=== PATIENT | male | born 1970 | race Two or more races ===

== ENCOUNTER 2025-01-16 12:23 | Inpatient (IN) | payer BC, SELFPAY ==
[2025-01-14] VITALS (7 sets, daily range): BP systolic 136–161; BP diastolic 95–108; BMI 33.9
[2025-01-14 15:29] LABS: % Basophils 0.7 % (0-2); % Eosinophils 2.8 % (0-6); % Immature Granulocytes 0.4 % (0-0.5); % Lymphocytes 22.9 % (20.5-51.1); % Monocytes 5.9 % (1.7-9.3); % Neutrophils 67.3 % (42.2-75.2); Absolute Basophils 0.1 10^3/uL (0-0.2); Absolute Eosinophils 0.3 10^3/uL (0-0.7); Absolute Monocytes 0.5 10^3/uL (0.1-0.6); Hemoglobin 16.1 g/dL (13.0-18.0); Mean Corp Hgb Conc. 35.8 g/dL (33.0-37.0); Mean Corpuscular Hgb 30.1 pg (27.0-31.0); Mean Corpuscular Volume 84.1 fL (80.0-94.0); Mean Platelet Volume 10.6 fL (7.4-10.4); Nucleated Red Blood Cells % 0 % (-); Platelet Count 210 10^3/uL (130-400); Red Blood Cell Count 5.35 10^6/uL (4.70-6.10); Red Cell Dist. Width 12.5 % (11.5-14.5); White Blood Cell Count 8.9 10^3/uL (4.8-10.8)
--- NOTE | 2025-01-14 15:29 | ED.GENMED ---
History of Present Illness
General
Chief Complaint: Breathing Problem
Source: patient
Exam Limitations: none
Time Seen by Provider: 01/14/25 15:10
Nursing documentation reviewed up to this point in time: agreed with
History of Present Illness
History of Present Illness:
Patient to ED [facility] complaint of CHACON x 2-3 days. Denies any chest pain, reports tightness. Denies fever/chills, recent illness. States he had a cardiac stent placed in the past. After procedure he was hospitalized for pericarditis. States his
symptoms are similar to this. No n/v/diaphoresis. No leg swelling or pain.
Past History
Past History
ED Past Medical History: CAD and Hypercholesterolemia
ED Past Surgical History: Cardiac (stent)
Social History
Tobacco: Non-smoker
Alcohol: Occasional
Review of Systems
Review of Systems
Allergies reviewed?: Yes
All Other Systems: ROS reviewed and negative except as documented in HPI and ROS
Constitutional: Reports no symptoms
EENT: Reports no symptoms
Respiratory: Reports trouble breathing
Cardiac: Reports other (Chest tightness)
ABD/GI: Reports no symptoms
: Reports no symptoms
Musculoskeletal: Reports no symptoms
Skin: Reports no symptoms
Neurological: Reports no symptoms
Psychiatric: Reports no symptoms
Phy Exam
General Physical Exam
General Presentation: mild distress
General age: appears stated age
General Skin: warm and dry
General Habitus: normal
General Mental: alert
Cardiovascular Exam
Cardiovascular Exam: regular rate/rhythm and no edema
Pulmonary Exam
Pulmonary Exam: lungs clear and no respiratory distress
Musculoskeletal Exam
Musculoskeletal Exam: full ROM and neuro vasc intact
Skin Exam
Skin Exam: normal color, warm/dry and no rash
Psychiatric Exam
Psychiatric Exam: normal mood/affect
Scores
Heart Failure Risk
Heart Failure Risk Score: Not Applicable
Course
Orders/Labs/Results
Orders:
Orders
01/14/25 14:28
EKG [Electrocardiogram (*1)] Urgent
Reason for Study: Shortness of Breath
EKG- Treatment ONCE
01/14/25 Dinner
Cholesterol Lowering
At Your Request: Full Participation
Cholesterol Lowering: Sodium, 2 Gram
01/14/25 15:14
IV Insert/Care/Rem.- Treatment PRN
01/14/25 15:18
Complete Blood Count/With Diff Urgent
Comprehensive Metabolic Panel Urgent
D-Dimer Urgent
Comment: ADDON
Glycohemoglobin (HgbA1c) Urgent
Prothrombin Time Urgent
Troponin I Urgent
01/14/25 15:27
CR Chest - 2 Views Urgent
Comment:
Reason For Exam: SOB
01/14/25 18:00
Troponin I Urgent
01/14/25 18:36
Admit/Transfer Patient As Directed
Co-Sign Provider:
Level of Care: Observation services
Assign to:: Telemetry
Physician / Group: Emigdio Cruz
Diagnosis: chest pain concerning for ACS
Reason for Telemetry: Chest Pain syndromes
Date to Stop Telemetry: 01/16/25
Time to Stop Telemetry: 11:00
01/14/25 18:37
Code Status As Directed
Resuscitation Status: Full Code
PRN Pain Medication Management As Directed
May give lesser potent ordered pain med per pt: Yes
preference::
Protocol:: Medication orders for pain may be administered in a
manner that supports deferring to patient preference
when the pt is:
- Requesting an ordered lesser potent pain medication.
Least to most potent pain medications are defined
as: acetaminophen < NSAID < tramadol < opioids
(morphine, oxycodone, hydromorphone).
- Requesting a lesser dose of the same medication IF
ORDERED.
- Requesting a less intrusive route of administration
if both routes are prescribed by the provider (PO <
IV).
01/14/25 20:29
Electrocardiogram (*1) Q6H
Reason for Study: Chest Pain
Comment: at admission and Q3H for total of 3, to be done with each troponin
01/14/25 20:29
CARDIOLOGY CONSULT Routine
Consulting Provider: Ryland Clark
Was physician already notified: Yes
Activity As Directed
Activity Level: Ambulate
INT (Intravenous Needle Therapy) As Directed
Comment: maintain peripheral IV access
Intake/ Output As Directed
Frequency: Per unit guidelines
Records Request [Obtain Records] As Directed
Dates of Information to be Released: all
Type of Information Requested: Entire Record
If Other, list type of info requested: Cardiac history
Obtain Records from: follow with protection engineer from [facility]
Vital Signs As Directed
Frequency: q4h
Weight As Directed
Frequency: Once
Comment: on admission
DX Deep Vein Thrombosis Video Routine
01/15/25 02:29
Electrocardiogram (*1) Q6H
Reason for Study: Chest Pain
Comment: at admission and Q3H for total of 3, to be done with each troponin
01/15/25 04:09
Basic Metabolic Panel IN AM
Cardiovascular Evaluation IN AM
01/15/25 08:00
Clopidogrel Bisulfate [Plavix] 75 mg PO DAILY
01/15/25 08:29
Electrocardiogram (*1) Q6H
Reason for Study: Chest Pain
Comment: at admission and Q3H for total of 3, to be done with each troponin
01/15/25 18:00
Enoxaparin Sodium [Lovenox] 40 mg SC QPM
01/16/25 11:00
DC Protocol for Telemetry ONCE
Abnormal Lab Results
01/14/25
15:18
MPV 10.6 H fL
(7.4-10.4)
BUN 21 H mg/dl
(9-20)
Glucose 126 H mg/dl
(70-99)
01/14/25 15:18
01/14/25 15:18
Vital Signs
Initial and Last Documented VS:
Initial Vital Signs
Temp Pulse Resp BP Pulse Ox
97.8 F 99 16 161/100 98
01/14/25 14:22 01/14/25 14:22 01/14/25 14:22 01/14/25 14:22 01/14/25 14:22
Last Documented Vital Signs
Temp Pulse Resp BP Pulse Ox
98.4 F 91 16 121/95 98
01/15/25 11:01 01/15/25 11:01 01/15/25 11:01 01/15/25 11:01 01/15/25 11:01
*Pulse Oximetry
SaO2: 98
Oxygen Mode of Delivery: Room air
*Critical Care Note
Total Time (30-74mins, 75-104mins- exclusive of procedures): Not Applicable
Update Note
Update Note:
Patient to ED with complaint of chest tightness, CHACON x 2-3 days. He reports having similar symptoms approx 5 years ago when he was diagnosed with pericarditis after stent placement. Follow with cardiolgist from [facility]. He did not call his
protection engineer with these new symptoms. Unclear why. Labs reviewed. EKG NSR, troponin neg, 2nd trop pending. DDimer neg. CBC, CMP WNL. PUlse ox 98%RA with activity and at rest. HR 70's at rest, jumpps to 110-115 with minimal activity. On
plavix and baby asa daily, reports complaince with his meds. Case discussed with Dr. Clark, will consult. Will admit to hospitalist for angina, plan for cath Thursday. Discussed plan with patient and family.
ED Attending Note
-
Portions of this chart may have been created with voice recognition software.� Occasional wrong word or��sound alike� substitutions may have occurred due to the inherent limitations of voice recognition software.
Discharge Plan
Departure
Patient Disposition: Admit
Date of Disposition: 01/14/25
Time of Disposition: 17:50
Presentation/result/management discussed w/ accepting MD/DO: Hospitalist
Patient with high blood pressure during this ER visit?: Yes
Condition: Fair
Covid-19: Not Applicable
Discharge Problem:
Accelerating angina
Interventions
Interventions:
*Risk Screen - Suicide Last Done: 01/14/25 14:22
*General Assessment Last Done: 01/14/25 15:08
*Neglect/Abuse Screening Last Done: 01/14/25 14:22
*ED- Fall Risk Assessment Last Done: 01/14/25 15:08
*ED COVID-19 Vaccine History Last Done: 01/14/25 15:08
*Nursing Disposition Last Done: 01/14/25 20:33
ED- Cardiac Assessment Last Done: 01/14/25 15:08
ED- Pulmonary Assessment Last Done: 01/14/25 15:08
Discharge Date and Time
Discharge Date/Time: 01/14/25 20:33
[2025-01-14 15:40] LABS: INR 0.93; PT 12.8 Sec (11.4-14.6)
[2025-01-14 15:44] LABS: ALT (SGPT) 39 U/L (0-50); AST (SGOT) 36 U/L (17-59); Albumin 4.7 g/dl (3.5-5.0); Alkaline Phosphatase 72 U/L (38-126); Blood Urea Nitrogen 21 mg/dl (9-20); Calcium 9.9 mg/dl (8.4-10.2); Carbon Dioxide 27 mmol/L (22-30); Chloride 102 mmol/L (98-107); Glucose 126 mg/dl (70-99); Sodium 137 mmol/L (135-145); Total Bilirubin 0.6 mg/dl (0.2-1.3); Total Protein 7.4 g/dl (6.3-8.2); eGFR > 60.00
[2025-01-14 15:51] LABS: Troponin I < 0.012 ng/ml
[2025-01-14 16:12] LABS: D-Dimer 0.28 ug/mlFEU (0.00-0.50)
--- NOTE | 2025-01-14 17:55 | HPS.HSE ---
Family Physician
-
Family Physician: Miguel Ansari
Chief Complaint
-
exertional dyspnea
History of Present Illness
Patient is a 54-year-old male with past medical history significant for ASCVD, hyperlipidemia and hypertension who presented to [facility] ED for evaluation of exertional dyspnea for 2-3 days. Patient reports that these symptoms are similar to those he
had approximately 5 years ago when he ended up with cardiac cath with stent placement and then pericarditis. Patient explains that he has chest discomfort on left side, non-radiating, mostly with exertion but has experienced symptoms at rest. Denies
any recent illness, fever, chills, cough, palpitations, nausea or vomiting.
Medical History
Past Medical History
Past Medical History: Reports Other
Additional Past Medical History:
ASCVD
hyperlipidemia
hypertension
Past Surgical History: Reports Other
Additional Past Surgical History:
cardiac cath with stent placement
Social History
Tobacco: Non-smoker
Alcohol: Occasional
Drug: None
Personal:
Living: With Family
Employment: Employed
Family History
Family History: Not pertinent
Allergies / Home Medications
Allergies reflects when Allergies were last updated in [employer].
Home Medications with original date entered in [employer]
Allergy/Medication List:
Allergies
Allergy/AdvReac Type Severity Reaction Status Date / Time
No Known Allergies Allergy Unverified 01/14/25 14:21
Home Medications
Metoprolol Tablets 100 mg PO QPM 01/14/25
Perindopril 6.78 mg PO DAILY 01/14/25
amlodipine 10 mg tablet (Norvasc) 10 mg PO DAILY 01/14/25
aspirin 81 mg tablet,delayed release 81 mg PO DAILY 01/14/25
berberine chloride 500 mg capsule 500 mg PO DAILY 01/14/25
clopidogrel 75 mg tablet (Plavix) 75 mg PO DAILY 01/14/25
coQ10 (ubiquinol) 100 mg capsule 100 mg PO DAILY 01/14/25
indapamide 2.5 mg tablet 2.5 mg PO DAILY 01/14/25
magnesium oxide 400 mg PO DAILY 01/14/25
rosuvastatin 40 mg tablet (Crestor) 40 mg PO DAILY 01/14/25
turmeric 400 mg capsule 400 mg PO DAILY 01/14/25
vitamin D3 125 mcg (5,000 unit)-vitamin K2 90 mcg capsule 1 cap PO DAILY 01/14/25
zinc sulfate 50 mg zinc (220 mg) tablet 50 mg PO DAILY 01/14/25
Review of Systems
-
History Source: Patient
Constitutional: Reports No Symptoms
EENT: Reports No Symptoms
Respiratory: Reports Other (exertional dyspnea )
Cardiac: Reports Chest Pain
Abdomen/GI: Reports No Symptoms
: Reports No Symptoms
Musculoskeletal: Reports No Symptoms
Skin: Reports No Symptoms
Neurological: Reports No Symptoms
Endocrine: Reports No Symptoms
Hematologic/Lymphatic: Reports No Symptoms
Psych: Reports No Symptoms
Physical Exam
Vital Signs
Vital Signs
Temp Pulse Resp BP Pulse Ox
97.8 F 106 19 158/97 95
01/14/25 14:22 01/14/25 17:17 01/14/25 17:17 01/14/25 16:52 01/14/25 17:17
Physical Exam
General: Well Developed, Well Nourished, No Apparent Distress, Comfortable and Conversant
HEENT: NormoCephalic, Moist mucous membranes, Atraumatic, [place] Conjunctivae, Nose Appears Normal and Ears Appear Normal
Respiratory: Clear and Non Labored Respirations
Cardiac: S1/S2 and Regular Rhythm; No Murmur, Rub or Gallop
Breast: Deferred by me
GI: Soft, Non Tender, Non Distended and Normal Bowel Sounds; No Organomegaly
Rectal: Deferred by Provider
Genito-urinary: Deferred by me
Musculoskeletal: No Clubbing, No Cyanosis and No Edema
Skin: Warm and IV/Catheter Site
Neuro: Awake, Alert, AO x 3 and Nonfocal/grossly intact
Psych: Calm and Intact Judgment/Insight
Laboratory Results
-
01/14/25 15:18
01/14/25 15:18
Laboratory Results
PT 12.8 Sec (11.4-14.6) 01/14/25 15:18
INR 0.93 01/14/25 15:18
Total Bilirubin 0.6 mg/dl (0.2-1.3) 01/14/25 15:18
AST 36 U/L (17-59) 01/14/25 15:18
ALT 39 U/L (0-50) 01/14/25 15:18
Alkaline Phosphatase 72 U/L (38-126) 01/14/25 15:18
Troponin I < 0.012 ng/ml 01/14/25 15:18
Data Reviewed
-
Diagnostic Radiology: Report Reviewed by me (CXR: 1. Mild cardiomegaly. 2. Mild right lung volume loss with mild left to right mediastinal shift and mild elevation of the right hemidiaphragm. )
Medical Tests (Nuc Med, Echo, EKG etc): Report Reviewed by me (EKG: NORMAL SINUS RHYTHM MINIMAL VOLTAGE CRITERIA FOR LVH, MAY BE NORMAL VARIANT ( R in aVL ) NONSPECIFIC T WAVE ABNORMALITY)
Lab Data: Labs Reviewed by me (trop < 0.012)
Impression/Plan
-
IMPRESSION/PLAN:
#chest pain
Trop < 0.012, <0.012
EKG: NORMAL SINUS RHYTHM
MINIMAL VOLTAGE CRITERIA FOR LVH, MAY BE NORMAL VARIANT ( R in aVL )
NONSPECIFIC T WAVE ABNORMALITY
CXR: 1. Mild cardiomegaly.
2. Mild right lung volume loss with mild left to right mediastinal shift and mild elevation of the right hemidiaphragm.
follows with tiler from [facility]
Patient reports taking statin intermittently
- Admit to IVU
- Consult Cardiology
- trend troponin
- request records
#ASCVD
#hyperlipidemia
s/p stent placement
Patient reports taking statin intermittently
- continue clopidogrel and rosuvastatin
#hypertension
Code status: full code
DVT prophylaxis: Lovenox sq
--- NOTE | 2025-01-14 17:58 | W.PN.UPDATE ---
Update Note
Progress Note Update
This note serves as an addendum to the H&P by nurse behavioral health care ANTOINETTE Zeny Rosa
HPI
54M Non smoker, No prior DH visit HX CAD with stent and Hypercholesterolemia sen at ER
- evaluation for Ferrera for last 3- 4days
- reports Yimi
- HX cardiac stent and after procedure he was hospitalized for pericarditis.
- Current symptoms are similar to this.
- No n/v/diaphoresis.
- No leg swelling or pain.
- Follow with centrifugal extractor operator from [facility]
- report partial adherence to Statin and Meds
Relevant VS:
01/14/25
14:22
Temp 97.8 F
Pulse 99
Resp Rate 16
Blood pressure 161/100
SaO2 98
Oxygen Mode of Delivery Room air
PE
Gen: Not toxic but mild distress
HEENT: anicteric
Neck: supple
Lungs: CTA
Cor: RRR S1 S2
Abdomen: soft NT NG NRT
HORTICULTURAL FARMWORKER: AAO3 NFND
MS: no edema
Psych: appropiate
Relevant labs
01/14/25 01/14/25
15:18 17:53
WBC 8.9
Hgb 16.1
Plt Count 210
Creatinine 0.9
eGFR > 60.00
Troponin I < 0.012 Pending
CXR:
1. Mild cardiomegaly.
2. Mild right lung volume loss with mild left to right mediastinal shift and mild elevation of the right hemidiaphragm.
EKG
NORMAL SINUS RHYTHM
MINIMAL VOLTAGE CRITERIA FOR LVH, MAY BE NORMAL VARIANT ( R in aVL )
NONSPECIFIC T WAVE ABNORMALITY
ABNORMAL ECG
NO PREVIOUS ECGS AVAILABLE
NO PRIOR hospitalist admission:
ASSESSMENT & PLAN
Pending Rx reconciliation
Patient has partial language barrier
Daughter proficient with Jordanian
Concerning for ACS
Ferrera and Yimi
NEG first TPNI. NOS abnormal T wave
HX stented CAD
HX post cardiac cath pericarditis
- Trend TPNI
- serial EKG
- SL NTG
- If POS 2nd TPN - will start Heparin gtt.
- CBC card consulted
HLD
- report partial adherence to Statin and Meds
- Resume CELL PREPARER Statin
To obtain cardiac records from [facility] primary centrifugal extractor operator
DVT Px:LMWH
Full code
TLM monitor
[2025-01-14 18:33] LABS: Troponin I < 0.012 ng/ml
--- NOTE | 2025-01-14 20:30 | PTCARENOTE ---
Patient arrived from ED to 336-2 via stretcher, at bedside. Ambulated to bed independently without any issue. At this time, patient denies chest pain but does state that the pain has been coming and going for a few days and he does not know
what makes it worse. Patient is primarily Georgian speaking, able to answer most questions appropriately. Daughter called during intake questioning to assist in answering some questions. Patient looking forward to getting some rest tonight. Serial
EKGs to be performed. Call bailon in reach. Will continue to monitor.
[2025-01-14] MEDS: MELATONIN 5 MG PO (21:04)
[2025-01-14 22:42] LABS: Magnesium 1.9 mg/dl (1.6-2.3)
[2025-01-15 03:55] VITALS: BP 136/95
[2025-01-15 04:58] LABS: Blood Urea Nitrogen 16 mg/dl (9-20); Calcium 9.7 mg/dl (8.4-10.2); Carbon Dioxide 26 mmol/L (22-30); Chloride 106 mmol/L (98-107); Estimated Creatinine Clearance 118 ml/min; Glucose 104 mg/dl (70-99); Potassium 3.9 mmol/L (3.5-5.1); Sodium 140 mmol/L (135-145); Total Cholesterol 194 mg/dl (50-199); Triglyceride 89 mg/dl (10-149); Very Low Density Lipoprotein 17 mg/dl (0-30); eGFR > 60.00
[2025-01-15 06:34] LABS: HDL Cholesterol 33 mg/dl; LDL Cholesterol, Calculated 144 mg/dl
[2025-01-15 07:00] VITALS: BP 135/99
[2025-01-15] MEDS: ASPIR LOW (ENTERIC COATED) 81 MG PO (08:58)
[2025-01-15] MEDS: PLAVIX 75 MG PO (08:58)
[2025-01-15] MEDS: NORVASC 10 MG PO (08:58)
[2025-01-15] MEDS: ZESTRIL 10 MG PO (08:58)
[2025-01-15 09:37] LABS: Glycohemoglobin (HgbA1c) 5.4 % (4.0-5.6)
[2025-01-15 11:01] VITALS: BP 121/95
--- NOTE | 2025-01-15 11:28 | W.PN.HOSP.TC ---
Today's Communication/Plan
-
Echocardiogram and cardiac cath tomorrow
Assessment / Plan
Assessment / Plan
Physical exam:
General: Well Developed, Well Nourished and No Apparent Distress
HEENT: Normocephalic, Atraumatic and Moist Mucous Membranes
Respiratory: Clear to Auscultation; Negative Wheezes, Rales or Rhonchi
Cardiac: Regular Rhythm and S1/S2
GI: Soft, Nontender and Nondistended
Musculoskeletal: No Clubbing, No Cyanosis and No Edema
Neuro: Awake, Alert and Oriented, no neurological deficits
Psych: Calm
A/P:
Chest pain:
Concerning for angina pectoris
Normal cardiac enzymes but concerning history
Continue DAPT, beta-blockers, SHIMON inhibitor, and statin
Cardiology consult appreciated
Continue cardiac monitoring
Plan for echocardiogram and cardiac cath on Thursday
History of CAD:
Continue DAPT, beta-blockers, SHIMON inhibitor, and statin
Hypertension:
Continue usual meds
Hyperlipidemia:
Continue statin
DVT prophylaxis:
Lovenox SQ
CODE STATUS:
Full code
Time spent 36-minutes
Anticipated Discharge: 24 - 48 hours
Subjective/Interval History
-
Date of Service: January 15, 2025
Patient denies any chest pain at rest. He does report chest pain on exertion. No shortness of breath.
Objective Data
-
Labs:
Laboratory Results
01/15/25
04:09
Sodium 140
Potassium 3.9
Chloride 106
Carbon Dioxide 26
BUN 16
Creatinine 0.8
Glucose 104 H
Calcium 9.7
Vital Signs:
Vital Signs
Temp Pulse Resp BP Pulse Ox
98.2 F 94 16 135/99 97
01/15/25 07:00 01/15/25 07:00 01/15/25 07:00 01/15/25 07:00 01/15/25 07:00
I&O
01/14/25 01/15/25 01/16/25
06:59 06:59 06:59
Intake Total 480 / 480
Balance 480 / 480
--- NOTE | 2025-01-15 14:16 | CON.CAR ---
Consultation
Consultation Request
Date/Time Consultation Requested: January 14, 2025 4 PM
Date/Time Consultation Performed: January 15, 2025 12 PM
Requesting Provider: Hospitalist
Performing Provider: Ryland Clark
Reason for Consultation: Chest pain
Medical History
-
Chief Complaint: Chest pain
History of Present Illness:
54-year-old male with past medical history of CAD status post stenting approximately 5 years ago, dyslipidemia, hypertension who is here for evaluation of chest pain with exertion. He tells me that on he noticed some chest squeezing when
he had been up and moving about. This progressively got worse on Thursday. Yesterday, it seemed to be brought on with even less activity and thus he decided to come to the emergency room. This feels similar to when he had chest pain approximately 5
years ago and he needed a stent. He tells me that this is his typical anginal type symptoms.
In the emergency room troponins were negative. He was then admitted for further evaluation.
Past Medical History
Past Medical History: CAD, HTN and Hypercholesterolemia
Past Surgical History: Other (Stent placement)
Social History
Tobacco: Non-Smoker
Alcohol: Occasional
Drug: None
Personal:
Living: With Family
Employment: Employed
Family History
Family History: Reviewed & Not Pertinent
Allergies / Home Medications
Allergy/AdvReac Type Severity Reaction Status Date / Time
No Known Allergies Allergy Unverified 01/14/25 14:21
�Medication �Instructions �Recorded �Confirmed �Type
Metoprolol Tablets 100 mg PO QPM 01/14/25 01/14/25 History
Perindopril 6.78 mg PO DAILY 01/14/25 01/14/25 History
amlodipine 10 mg tablet (Norvasc) 10 mg PO DAILY 01/14/25 01/14/25 History
aspirin 81 mg tablet,delayed 81 mg PO DAILY 01/14/25 01/14/25 History
release
berberine chloride 500 mg capsule 500 mg PO DAILY 01/14/25 01/14/25 History
clopidogrel 75 mg tablet (Plavix) 75 mg PO QPM 01/14/25 01/14/25 History
coQ10 (ubiquinol) 100 mg capsule 100 mg PO DAILY 01/14/25 01/14/25 History
indapamide 2.5 mg tablet 2.5 mg PO DAILY 01/14/25 01/14/25 History
magnesium oxide 400 mg PO DAILY 01/14/25 01/14/25 History
rosuvastatin 40 mg tablet (Crestor) 40 mg PO QPM 01/14/25 01/14/25 History
turmeric 400 mg capsule 400 mg PO DAILY 01/14/25 01/14/25 History
vitamin D3 125 mcg (5,000 1 cap PO DAILY 01/14/25 01/14/25 History
unit)-vitamin K2 90 mcg capsule
zinc sulfate 50 mg zinc (220 mg) 50 mg PO DAILY 01/14/25 01/14/25 History
tablet
Review of Systems
-
All other systems: Negative unless noted
Physical Exam
Vital Signs
Temp Pulse Resp BP Pulse Ox
98.4 F 91 16 121/95 98
01/15/25 11:01 01/15/25 11:01 01/15/25 11:01 01/15/25 11:01 01/15/25 11:01
Lab Results
01/14/25 15:18
01/15/25 04:09
Troponin I Cancelled 01/14/25 23:29
Physical Exam
General: Well Developed, Well Nourished and No Apparent Distress
HEENT: Normocephalic
Respiratory: Clear and Non Labored Respirations
Cardiac: S1/S2 and Regular Rhythm
GI: Soft
Musculoskeletal: No Clubbing, No Cyanosis and No Edema
Skin: Warm and Dry
Neuro: AO x 3
Psych: Calm
Impression / Plan
-
A/P: 54-year-old male with past medical history of CAD status post stenting, dyslipidemia, hypertension who is here for evaluation of worsening chest pain and dyspnea. Overall, his story is concerning for accelerated angina. We will plan for heart
catheterization on Thursday.
Accelerated angina
- He is already on aspirin and Plavix we will continue
- Cath on Thursday
- Echocardiogram
- Continue statin
CAD status post tenting
- As above
Hypertension
- Continue home meds
Dyslipidemia
- Continue rosuvastatin
Data Reviewed
-
EKG: Tracing Personally Visualized and interpreted (sr)
Labs: Labs Reviewed by me
[2025-01-15 15:36] VITALS: BP 128/81
[2025-01-15] MEDS: CRESTOR PO (18:01)
[2025-01-15] MEDS: TOPROL XL 100 MG PO (18:04)
[2025-01-15] MEDS: LOVENOX 40 MG SC (18:04)
[2025-01-15 19:38] VITALS: BP 130/79
[2025-01-15 23:28] VITALS: BP 126/79
[2025-01-16] VITALS (19 sets, daily range): BP systolic 115–145; BP diastolic 73–95
[2025-01-16 05:44] LABS: Hematocrit 44.9 % (39.0-52.0); Hemoglobin 15.9 g/dL (13.0-18.0); Mean Corp Hgb Conc. 35.4 g/dL (33.0-37.0); Mean Corpuscular Volume 84.7 fL (80.0-94.0); Mean Platelet Volume 10.9 fL (7.4-10.4); Platelet Count 218 10^3/uL (130-400); Red Cell Dist. Width 12.6 % (11.5-14.5); White Blood Cell Count 8.5 10^3/uL (4.8-10.8)
[2025-01-16 06:02] LABS: Blood Urea Nitrogen 22 mg/dl (9-20); Calcium 9.6 mg/dl (8.4-10.2); Carbon Dioxide 28 mmol/L (22-30); Chloride 103 mmol/L (98-107); Estimated Creatinine Clearance 105 ml/min; Glucose 108 mg/dl (70-99); Sodium 140 mmol/L (135-145); eGFR > 60.00
[2025-01-16] MEDS: NORVASC 10 MG PO (07:39)
[2025-01-16] MEDS: ZESTRIL 10 MG PO (07:40)
[2025-01-16] MEDS: PLAVIX 75 MG PO (07:42)
[2025-01-16] MEDS: ASPIR LOW (ENTERIC COATED) 81 MG PO (07:42)
--- NOTE | 2025-01-16 09:12 | W.PN.CD ---
Today's Communication / Plan
-
Continue all current medications.
Coronary angiography to clarify coronary anatomy.
Impression / Plan
-
Impression/Plan: 54-year-old male with past medical history of CAD status post PCI, dyslipidemia, hypertension who is here for evaluation of worsening chest pain and dyspnea, concerning for accelerated angina.
#CAD/Accelerating angina
-Acute on chronic.
-Troponin negative.
-Cardiac cath today for clarification of coronary anatomy.
-Echocardiogram ordered/pending.
-Continue amlodipine, aspirin, clopidogrel, metoprolol and rosuvastatin.
#Hypertension
-Chronic, stable.
-Continue amlodipine, metoprolol.
-Started on lisinopril.
#Dyslipidemia
-Chronic, stable.
-Total cholesterol = 194, LDL = 144, HDL = 33, Triglycerides = 89.
-Continue rosuvastatin. Goal LDL < 55.
Subjective/Interval History:
No acute events.
No subjective complaints.
Physical Exam
Vital Signs/Labs
Vital Signs
Temp Pulse Resp BP Pulse Ox
36.7 C 66 17 131/86 98
01/16/25 07:00 01/16/25 07:40 01/16/25 07:00 01/16/25 07:40 01/16/25 08:27
01/14/25 01/15/25 01/16/25
11:59 11:59 11:59
Actual Weight 98.203 kg
01/16/25 05:25
01/16/25 05:25
PT 12.8 Sec (11.4-14.6) 01/14/25 15:18
INR 0.93 01/14/25 15:18
Magnesium 1.9 mg/dl (1.6-2.3) 01/14/25 22:13
Triglycerides 89 mg/dl (10-149) 01/15/25 04:09
LDL Cholesterol, Calc 144 mg/dl 01/15/25 04:09
VLDL Cholesterol, Calc 17 mg/dl (0-30) 01/15/25 04:09
HDL Cholesterol 33 mg/dl 01/15/25 04:09
LAB Results
01/14/25 01/14/25 01/14/25
15:18 18:00 20:29
Troponin I < 0.012 < 0.012 Cancelled
01/14/25
23:29
Troponin I Cancelled
Physical Exam
Constitutional: No acute distress and Comfortable
EENT: Anicteric and Moist mucous membranes
Cardiovascular: Rhythm & rate is regular, Pedal edema is absent, JVD pressure is normal, S1S2 is normal and Murmur/rub/gallop absent
Respiratory: Respiratory effort normal, Lungs clear to auscul., Wheeze Absent, Crackles Absent and Rhonchi Absent
GI: Soft, Distention absent, Flat, Non tender and Normal bowel sounds
Neuro/Psych: AO x 3
Data Reviewed
-
Date of Service: January 16, 2025
Medical Decision Making: Reviewed Test Results, Independent Historian Assessment and Test Interpretation
EKG: Tracing Personally Visualized and interpreted and Report Reviewed by me
X-Ray/CT/US/MRI/NUC/PET: Image Personally Visualized and interpreted and Report Reviewed by me
Medical Tests (PFT, Pathology etc): Image Personally Visualized and interpreted and Report Reviewed by me
Labs: Labs Reviewed by me
--- NOTE | 2025-01-16 10:19 | ITS.CL.CATH ---
Ethics Instructor - Catheterization
Cardiac Catheterization
Procedure Report:
CARDIAC CATHETERIZATION REPORT
Date of Procedure: 01/16/2025
Referring: Ryland Clark M.D.
INDICATION: Accelerating angina, known coronary artery disease.
PROCEDURE:
1. Left heart catheterization.
2. Coronary angiography.
3. Successful IFR of the proximal RCA.
A total of 40 minutes of procedural/moderate sedation was utilized. An independent site medical director was present to assist with and help manage the patient's level of consciousness and physiologic status.
ACCESS:
1. 6 [place] right artery using a modified Seldinger technique.
CATHETERS:
1. 5 [place] JR4.
2. 5 [place] JL 3.5.
3. 6 [place] JR4 guiding catheter.
HEMODYNAMIC DATA
Weight (kg): 98.0
AO (s/d/x, mmHg): 121/85/99
LV (s/x mmHg): 126/8
LEFT VENTRICULOGRAPHY: Not performed.
CORONARY ANGIOGRAPHY
Dominance: Right.
Left Main: Large size, bifurcating vessel. There is a 70% lesion in the distal vessel.
LAD: Normal size vessel giving rise to 3 significant diagonals. There are minor luminal irregularities in the proximal vessel. There is a focal, 90% lesion in the mid LAD, immediately after the third diagonal.
Ramus: Congenitally absent.
Circumflex: Normal size, nondominant vessel that appears to be a single large obtuse marginal. The origin of the vessel is somewhat acute, bending backwards against the left main coronary artery to approximately 130 degrees. There is a 99%
lesion in the ostium/proximal margin of the vessel with SRI I flow.
RCA: Large size, dominant vessel with a significant posterolateral arcade. There is a 40% lesion in the proximal vessel. There is a 30-40% lesion in the mid vessel.
INTERVENTION(S)
1. Successful IFR of the 40% proximal RCA and 30-40% mid RCA lesions, demonstrating nonocclusive disease (IFR = 0.95).
Narrative:
The decision was made to perform physiologic testing. The diagnostic catheter was removed over a wire and exchanged for a(n) 6 [place] JR4 guiding catheter. The guiding catheter was advanced into the ascending aorta and seated in the right coronary
artery. Additional heparin was given to obtain an ACT greater than 250 seconds. An iFR wire was zeroed outside of the body, then inserted into the guiding sheath. The wire was advanced and the transducer was normalized just outside of the guiding
catheter tip. The wire was advanced into the distal RCA, beyond the tandem 40% and 30-40% lesions. Three iFR measurements were taken. The lesion was determined to be nonocclusive (0.95).
Closure Device: Vascular band.
Radiation (mGy): 680.27
DAP (cm2.Gy): 55.3472
Fluoroscopy time (minutes): 5.7
CONCLUSIONS
1. Right dominant circulation with nonocclusive, tandem 40% and 30-40% lesions in the proximal and mid RCA (IFR = 0.95), a 70% lesion in the distal left main, luminal irregularities with moderate disease in the proximal LAD followed by a focal, 90%
lesion in the mid LAD after the origin of the third diagonal and a 99% lesion in the ostium/proximal margin of the circumflex which demonstrates an acute, 130 degree angulation.
2. Normal filling pressures (LVEDP = 8 mmHg at 98.0 kg).
RECOMMENDATIONS:
1. Expectant management after cardiac catheterization via right radial approach.
2. Limited weight bearing on the right wrist for one week.
3. Consultation with CT surgery regarding optimal revascularization technique.
4. Echocardiogram ordered and pending.
5. Continue aggressive secondary prevention with high-dose, high potency statin.
6. OMT/GDMT as hemodynamics will tolerate.
Copy to: Miguel Ansari M.D., Ryland Clark M.D.
Colin Mayo, DO, FACC, FACP
--- NOTE | 2025-01-16 11:53 | CONSULT.CT ---
Addendum entered and electronically signed by Trixie Saucedo NP 01/16/25 13:49:
Addendum to review of left heart catheterization report after clarification with Dr. Mayo: Pt noted to have patent stent in the diagonal.
Original Note:
Consultation
-
Date/Time Consultation Requested: 01/16/25
Date/Time Consultation Performed: 01/16/25
Requesting Provider: Dr. Mayo
Performing Provider: MARY Lizama for Dr. Dago Britt
Reason for Consultation: CAD
Patient History
Physicians
Family Physician: Miguel Ansari MD
Outpatient Pedodontist: Merlene Dia
Inpatient Pedodontist: [facility]
History of Present Illness
Mr. Woods is a 54-year-old male with a PMHx of HTN, CAD s/p ANURADHA (~2019) c/b pericarditis, dyslipidemia, and peptic ulcer while on NSAIDS s/p EGD with intervention (~2019) who presented to [facility] ED (01/15/25) with complaints of chest pain with
exertion. Mr. Woods reported that he was having progressive chest pain during his physical activity over the last 2-3 days. He described his chest discomfort as left-sided, non-radiating, primarily occurring at rest with progression to noticing
symptoms at rest. He reported that his chest discomfort felt similar to his discomfort he endured 5-years ago in which he was referred for nuclear stress test, then LHC resulting in ANURADHA. He denied any lightheadedness/dizziness, SOB, CHACON, orthopnea,
edema, n/v/d, urinary complaints, or bleeding abnormalities. Mr. Woods reported prior history of peptic ulcer while taking NSAIDs in setting of pericarditis. Within the ED, EKG showed NSR with non-specific T-wave abnormality, Troponin were
negative, CXR showed mild cardiomegaly with mild R hemidiaphragm. Cardiology was consulted in which he was referred for a LHC. Today, Mr. Woods underwent a LHC (01/16/25) with Dr. Mayo which revealed patent L main stain, 70% distal LM, 90% LAD,
and 99% ostial/mid-circ disease with LVEDP of 8; RCA had 30-40% with iFR of pRCA. TTE was ordered by Cardiology and pending. Currently, he denies any further chest discomfort. Cardiothoracic Surgery was consulted consideration of CABG.
Past Medical History
Past Medical History: CAD, HTN and Other (Dyslipidemia)
Past Surgical History
Past Surgical History: PCI/Stent (2019)
Family History
Mother: at Age (77) and Cause of (GI complications)
Father: at Age (60, suspected pulmonary embolism due to DVT (?provoked/unprovoked))
Family Medical History: Diabetes and Hypertension
Social History
Alcohol: Occasional
Drug: None
Tobacco: Non-Smoker
Personal:
Living: With Spouse
Allergies
Allergy/AdvReac Type Severity Reaction Status Date / Time
No Known Allergies Allergy Unverified 01/14/25 14:21
Home Medications
�Medication �Instructions �Recorded �Confirmed �Type
Metoprolol Tablets 100 mg PO QPM 01/14/25 01/14/25 History
Perindopril 6.78 mg PO DAILY 01/14/25 01/14/25 History
amlodipine 10 mg tablet (Norvasc) 10 mg PO DAILY 01/14/25 01/14/25 History
aspirin 81 mg tablet,delayed 81 mg PO DAILY 01/14/25 01/14/25 History
release
berberine chloride 500 mg capsule 500 mg PO DAILY 01/14/25 01/14/25 History
clopidogrel 75 mg tablet (Plavix) 75 mg PO QPM 01/14/25 01/14/25 History
coQ10 (ubiquinol) 100 mg capsule 100 mg PO DAILY 01/14/25 01/14/25 History
indapamide 2.5 mg tablet 2.5 mg PO DAILY 01/14/25 01/14/25 History
magnesium oxide 400 mg PO DAILY 01/14/25 01/14/25 History
rosuvastatin 40 mg tablet (Crestor) 40 mg PO QPM 01/14/25 01/14/25 History
turmeric 400 mg capsule 400 mg PO DAILY 01/14/25 01/14/25 History
vitamin D3 125 mcg (5,000 1 cap PO DAILY 01/14/25 01/14/25 History
unit)-vitamin K2 90 mcg capsule
zinc sulfate 50 mg zinc (220 mg) 50 mg PO DAILY 01/14/25 01/14/25 History
tablet
Review of Systems
-
General: Reports No Symptoms
HEENT: Reports No Symptoms
Respiratory: Reports No Symptoms
Cardiac: Reports CAD
Abdomen/GI: Reports Ulcers
: Reports No Symptoms
Musculoskeletal: Reports Joint Pain (R knee)
Skin: Reports No Symptoms
Neurological: Reports No Symptoms
Vascular: Reports No Symptoms
Physical Exam
Vital Signs
Temp 98.1 F 01/16/25 10:49
Temp route: Oral 01/16/25 10:49
Pulse 75 01/16/25 11:20
Rhythm: Normal sinus rhythm 01/16/25 08:27
With- First Degree Heart Block 01/16/25 08:27
Resp Rate 18 01/16/25 10:45
Blood pressure 144/95 01/16/25 11:15
Blood pressure extremity used: Left upper arm 01/16/25 10:45
Position: Lying 01/16/25 10:45
MAP (cuff-Tierney Monitor) 111 01/16/25 11:15
SaO2 95 01/16/25 11:20
Oxygen Mode of Delivery Room air 01/16/25 10:45
Can the patient verbally communicate their pain? Yes 01/16/25 08:27
Actual Weight 98.203 kg 01/14/25 20:30
Body Mass Index (BMI) 33.9 01/14/25 20:30
Labs
01/16/25 05:25
01/16/25 05:25
PT 12.8 Sec (11.4-14.6) 01/14/25 15:18
Hemoglobin A1c Cancelled 01/14/25 20:29
Troponin I Cancelled 01/14/25 23:29
Exam
General: Well Developed and Well Nourished
HEENT: Normocephalic, Atraumatic and PERRLA
Respiratory: Clear
Cardiac: S1/S2
GI: Soft, Non Tender and Normal Bowel Sounds
Skin: Warm, Dry and Other (R Radial TR band, Cap refill < 3)
Neuro: Awake, Alert, Oriented and AO x 3
Extremities: Pulses (+2 B/L)
Psych: Calm
Assessment / Plan
-
- Appreciate consultation regarding plan for re-vascularization.
- Will discuss with consultation with Attending. Further details regarding surgical timing intervention will be determined after attending physicians full evaluation.
- Routine pre-operative diagnostic imaging ordered:
- CT chest w/o IV contrast
- US Cerebrovascular
- US Palmar Arch (Left)
- Labwork deferred until definitive surgery date planned.
- Lisinopril & Plavix placed on hold. Last dose of SHIMON-i (02/15/25). Last dose of Plavix (02/15/25).
- STS risk stratification score will be calculated after preoperative testing is complete.
Data Reviewed
-
EKG: Tracing Personally Visualized and interpreted
Administrative Fellow: Discussed with Physician and Discussed with Patient
[2025-01-16] MEDS: NSS 1000 IV (12:19)
--- NOTE | 2025-01-16 12:19 | W.PN.HOSP.TC ---
Today's Communication/Plan
-
Continue with current medical treatment for CAD
Await CT surgery input
Assessment / Plan
Assessment / Plan
A/P:
Chest pain: Secondary to CAD
History of CAD s/p prior PCI and stenting
Left heart cath today shows multivessel disease; filling pressures are normal and clinically not in heart failure.
Referred to CT surgery for an input
Continue DAPT, beta-blockers, SHIMON inhibitor, and statin. He is on Crestor 40 mg at home.
History of CAD:
Continue DAPT, beta-blockers, SHIMON inhibitor, and statin
Hypertension:
Continue usual meds
Hyperlipidemia:
Continue statin
DVT prophylaxis:
Lovenox SQ
CODE STATUS:
Full code
Discussed with the patient and the daughter at bedside and answered all the questions. Await CT surgery input.
Anticipated Discharge: > 48 hours
Subjective/Interval History
-
Date of Service: January 16, 2025
Status post left heart catheterization this morning-found to have multivessel disease and referred to CT surgery
Currently in IVU-denies any chest pain, shortness of breath or palpitations.
No dizziness.
Objective Data
-
Labs:
Laboratory Results
01/16/25
05:25
WBC 8.5
Hgb 15.9
Hct 44.9
Plt Count 218
Sodium 140
Potassium 4.0
Chloride 103
Carbon Dioxide 28
BUN 22 H
Creatinine 0.9
Glucose 108 H
Calcium 9.6
Vital Signs:
Vital Signs
Temp Pulse Resp BP Pulse Ox
98.1 F 75 18 144/95 95
01/16/25 10:49 01/16/25 11:20 01/16/25 10:45 01/16/25 11:15 01/16/25 11:20
I&O
01/15/25 01/16/25 01/17/25
06:59 06:59 06:59
Intake Total 480 / 480 840 / 840
Balance 480 / 480 840 / 840
Physical Exam
-
General: No Apparent Distress
HEENT: Moist Mucous Membranes
Respiratory: Clear to Auscultation
Cardiac: Regular Rhythm and S1/S2
Neuro: AO x 3
Data Reviewed
-
Labs: Labs Reviewed by me
--- NOTE | 2025-01-16 13:28 | PTCARENOTE ---
Received patient from the research lab assistant at 1030. Radial band in place right wrist, with a strong radial pulse and no signs of hematoma. Monitoring VS, post IVF infusing RAC. Attempted to remove 3ml of air 2 hours post placement and patient had some
bleeding at the site and air was replaced. Now I was able to remove 3ml of air without any bleeding noted. Patient initially appeared very upset after speaking with Dr. Mayo about the results. Now appears calmer, ordered the patient some lunch,
waiting for his to arrive later, multiple testing ordered and will send when radial band is able to be removed. Call balion in reach.
--- NOTE | 2025-01-16 16:44 | CM ---
pt in CCL, cm to see in am
[2025-01-16] MEDS: CRESTOR 40 MG PO (17:35)
[2025-01-16] MEDS: LOVENOX 40 MG SC (17:35)
[2025-01-16] MEDS: TOPROL XL 100 MG PO (17:45)
--- NOTE | 2025-01-16 18:32 | PTCARENOTE ---
Dressing right wrist is dry and intact, post cath IV fluids completed. Patient does not want a dinner, his is bringing him in 'healthy' foods. Pre surgical testing: CT, CXR and ultrasounds completed. Sitting oob in the chair talking with family
on the phone.
--- NOTE | 2025-01-16 21:24 | PTCARENOTE ---
Patient received at change of shift out of bed to the chair and excited to see his spouse and daughter. Denies chest pain while at rest but endorses intermittent chest pain upon exertion. Right radial puncture site with gauze and tegaderm C/D/I,
radial pulse palpable. Sinus rhythm on telemetry. Oxygen saturation 99% on room air. Plan of care discussed. Call bailon within reach. Care ongoing.
[2025-01-17 03:42] VITALS: BP 116/82
[2025-01-17 04:16] LABS: Hematocrit 44.3 % (39.0-52.0); Hemoglobin 15.4 g/dL (13.0-18.0); Mean Corp Hgb Conc. 34.8 g/dL (33.0-37.0); Mean Corpuscular Hgb 29.8 pg (27.0-31.0); Mean Corpuscular Volume 85.7 fL (80.0-94.0); Mean Platelet Volume 11.5 fL (7.4-10.4); Platelet Count 208 10^3/uL (130-400); Red Blood Cell Count 5.17 10^6/uL (4.70-6.10); Red Cell Dist. Width 12.5 % (11.5-14.5); White Blood Cell Count 10.7 10^3/uL (4.8-10.8)
[2025-01-17 04:43] LABS: Blood Urea Nitrogen 21 mg/dl (9-20); Calcium 9.5 mg/dl (8.4-10.2); Carbon Dioxide 27 mmol/L (22-30); Chloride 108 mmol/L (98-107); Estimated Creatinine Clearance 118 ml/min; Glucose 95 mg/dl (70-99); Sodium 140 mmol/L (135-145); eGFR > 60.00
[2025-01-17 07:58] VITALS: BP 130/81
[2025-01-17] MEDS: NORVASC 10 MG PO (08:05)
[2025-01-17] MEDS: ZESTRIL 10 MG PO (08:05)
[2025-01-17] MEDS: ASPIR LOW (ENTERIC COATED) 81 MG PO (08:05)
[2025-01-17 08:29] LABS: ACT-LR - POC > 397 Seconds (116-155)
--- NOTE | 2025-01-17 08:59 | W.PN.UPDATE ---
Update Note
Progress Note Update
patient prefers to be remain inpatient while awaiting CT surgery. We will continue ongoing workup, surgery date TBD.
--- NOTE | 2025-01-17 09:34 | W.PN.CD ---
Today's Communication / Plan
-
- Patient had episodes of angina yesterday.
- Recommend placing on a heparin drip.
- Continue aspirin, high-dose rosuvastatin, and metoprolol succinate.
- CT surgical date pending.
- Will order an echocardiogram today.
Impression / Plan
-
Impression/Plan: 54-year-old male with CAD status post PCI, dyslipidemia, hypertension who is here for evaluation of worsening chest pain and dyspnea, concerning for accelerated angina.
#CAD/Accelerating angina
- Found to have multivessel CAD on cardiac catheterization; CABG recommended.
- Patient had episodes of angina yesterday.
- Recommend placing on a heparin drip.
- Continue aspirin, high-dose rosuvastatin, and metoprolol succinate.
- CT surgical date pending.
- Will order an echocardiogram today.
#Hypertension
-Chronic, stable.
-Continue current doses of amlodipine, metoprolol succinate, and lisinopril for now.
-Started on lisinopril.
#Dyslipidemia
-Chronic, stable.
-Total cholesterol = 194, LDL = 144, HDL = 33, Triglycerides = 89.
-Continue high-dose rosuvastatin (goal LDL < 55).
Subjective/Interval History:
No major events overnight. Patient had intermittent episodes of angina yesterday.
Physical Exam
Vital Signs/Labs
Vital Signs
Temp Pulse Resp BP Pulse Ox
98.4 F 74 18 130/81 96
01/17/25 07:58 01/17/25 08:00 01/17/25 07:58 01/17/25 07:58 01/17/25 07:58
01/17/25 03:51
01/17/25 03:51
PT 12.8 Sec (11.4-14.6) 01/14/25 15:18
INR 0.93 01/14/25 15:18
Magnesium 1.9 mg/dl (1.6-2.3) 01/14/25 22:13
Triglycerides 89 mg/dl (10-149) 01/15/25 04:09
LDL Cholesterol, Calc 144 mg/dl 01/15/25 04:09
VLDL Cholesterol, Calc 17 mg/dl (0-30) 01/15/25 04:09
HDL Cholesterol 33 mg/dl 01/15/25 04:09
LAB Results
01/14/25 01/14/25 01/14/25
15:18 18:00 20:29
Troponin I < 0.012 < 0.012 Cancelled
01/14/25
23:29
Troponin I Cancelled
Physical Exam
Constitutional: No acute distress and Comfortable
EENT: Anicteric
Cardiovascular: Rhythm & rate is regular, Pedal edema is absent, Systolic murmur absent and S1S2 is normal
Respiratory: Respiratory effort normal and Lungs clear to auscul.
GI: Soft
Neuro/Psych: AO x 3
Other: Skin (Warm, dry, intact)
Data Reviewed
-
Date of Service: January 17, 2025
EKG: Tracing Personally Visualized and interpreted (Telemetry: Sinus rhythm.)
Echo: Ordered by me
Medical Tests (PFT, Pathology etc): Discussed with Patient
Labs: Labs Reviewed by me
--- NOTE | 2025-01-17 12:18 | PTCARENOTE ---
After the patient took his am medications, he stated that he felt 'a little dizzy'. He did state that it had passed and asked if it was due to his blood pressure medications. I explained to him the side effect of his medication that included
dizziness. I asked that if he felt dizzy to notify me. I encourage him to rise up slowly from a lying and sitting position. He agreed he would let me know if it happened again.
[2025-01-17 12:23] VITALS: BP 133/78
--- NOTE | 2025-01-17 13:44 | W.PN.HOSP.TC ---
Today's Communication/Plan
-
Continue with aspirin, Plavix, and statin.
IV heparin per cardiology
Echo for today
Assessment / Plan
Assessment / Plan
A/P:
Chest pain: Secondary to CAD
History of CAD s/p prior PCI and stenting
Left heart cath 01/16 shows multivessel disease; filling pressures are normal and clinically not in heart failure.
Referred to CT surgery for an input-ongoing evaluation for CABG
Continue DAPT, beta-blockers, SHIMON inhibitor, and statin. He is on Crestor 40 mg at home.
Cardiology following-planning to do IV heparin because of intermittent anginal episodes. Echo for today ordered.
History of CAD:
Continue DAPT, beta-blockers, SHIMON inhibitor, and statin
Hypertension:
Continue usual meds
Hyperlipidemia:
Continue statin
DVT prophylaxis:
Lovenox SQ
CODE STATUS:
Full code
Anticipated Discharge: > 48 hours
Subjective/Interval History
-
Date of Service: January 17, 2025
Had chest discomfort yesterday none today.
Denies any shortness of breath.
He was feeling lightheadedness and he thinks it is because of new medications he got.
No nausea vomiting.
Objective Data
-
Labs:
Laboratory Results
01/17/25
03:51
WBC 10.7
Hgb 15.4
Hct 44.3
Plt Count 208
Sodium 140
Potassium 4.0
Chloride 108 H
Carbon Dioxide 27
BUN 21 H
Creatinine 0.8
Glucose 95
Calcium 9.5
Vital Signs:
Vital Signs
Temp Pulse Resp BP Pulse Ox
98.3 F 74 16 133/78 96
01/17/25 12:24 01/17/25 12:23 01/17/25 12:24 01/17/25 12:23 01/17/25 12:24
I&O
01/16/25 01/17/25 01/18/25
06:59 06:59 06:59
Intake Total 840 / 840 1750 / 1750
Balance 840 / 840 1750 / 1750
Physical Exam
-
General: No Apparent Distress
HEENT: Moist Mucous Membranes
Respiratory: Non Labored Respirations; Negative Accessory Resp Muscle Use
Cardiac: Regular Rhythm and S1/S2; Negative Tachycardic
GI: Soft
Neuro: AO x 3
Data Reviewed
-
Labs: Labs Reviewed by me
--- NOTE | 2025-01-17 14:01 | CM ---
spoke to pt in room, he is prev cm followingindep, lives with his in a 2 story home with no steps to enter. he denies any dc plannin gneeds or dme's. plan is for ct surgery this admission. cm following
[2025-01-17 16:01] VITALS: BP 119/86
[2025-01-17] MEDS: TOPROL XL 100 MG PO (17:25)
[2025-01-17] MEDS: LOVENOX 40 MG SC (17:25)
[2025-01-17] MEDS: CRESTOR 40 MG PO (17:25)
[2025-01-17 19:39] VITALS: BP 115/79
--- NOTE | 2025-01-17 21:00 | PTCARENOTE ---
Received pt at change of shift resting in bed, family at bedside. SR on tele, HR in the 70's. Right radial site C.D.I. positive pulses. Instructed pt of activity restrictions. pt denies any chest pain or SOB. Pt also denies any dizziness when
ambulating. Call bailon within reach.
[2025-01-17 23:15] VITALS: BP 123/77
[2025-01-18] VITALS (7 sets, daily range): BP systolic 118–146; BP diastolic 74–91
--- NOTE | 2025-01-18 08:50 | W.PN.CD ---
Today's Communication / Plan
-
Increase enoxaparin to 150 mg q24 hours.
CABG planning.
Impression / Plan
-
Impression/Plan: 54-year-old male with CAD status post PCI, dyslipidemia, hypertension who is here for evaluation of worsening chest pain and dyspnea, concerning for accelerated angina.
#CAD/Accelerating angina
-Found to have multivessel CAD on cardiac catheterization; CABG recommended.
-Patient had episodes of angina 01/16/2025. We will increase enoxaparin to therapeutic to minimize blood draws.
-Continue aspirin, high-dose rosuvastatin, amlodipine and metoprolol succinate.
-CABG tentatively planned for 01/20/2025.
#Hypertension
-Chronic, stable.
-Continue current doses of amlodipine, metoprolol succinate, and lisinopril for now.
#Dyslipidemia
-Chronic, stable.
-Total cholesterol = 194, LDL = 144, HDL = 33, Triglycerides = 89.
-Continue high-dose rosuvastatin (goal LDL < 55).
Subjective/Interval History:
No acute events.
No subjective complaints.
DATA:
Cardiac Catheterization, 01/16/2025:
CONCLUSIONS
1. Right dominant circulation with nonocclusive, tandem 40% and 30-40% lesions in the proximal and mid RCA (IFR = 0.95), a 70% lesion in the distal left main, luminal irregularities with moderate disease in the proximal LAD followed by a focal, 90%
lesion in the mid LAD after the origin of the third diagonal and a 99% lesion in the ostium/proximal margin of the circumflex which demonstrates an acute, 130 degree angulation.
2. Normal filling pressures (LVEDP = 8 mmHg at 98.0 kg).
Transthoracic Echocardiogram, 01/17/2025:
CONCLUSIONS
LV ejection fraction is 60-65%. No regional wall motion abnormalities are seen.
Normal right ventricular size and function.
Mild to moderate tricuspid regurgitation. Estimated pulmonary artery pressure
of 25-30 mmHg.
No prior study available for comparison.
Physical Exam
Vital Signs/Labs
Vital Signs
Temp Pulse Resp BP Pulse Ox
36.4 C 69 16 134/91 99
01/18/25 07:29 01/18/25 07:10 01/18/25 07:29 01/18/25 07:10 01/18/25 07:29
01/17/25 03:51
01/17/25 03:51
PT 12.8 Sec (11.4-14.6) 01/14/25 15:18
INR 0.93 01/14/25 15:18
Magnesium 1.9 mg/dl (1.6-2.3) 01/14/25 22:13
Triglycerides 89 mg/dl (10-149) 01/15/25 04:09
LDL Cholesterol, Calc 144 mg/dl 01/15/25 04:09
VLDL Cholesterol, Calc 17 mg/dl (0-30) 01/15/25 04:09
HDL Cholesterol 33 mg/dl 01/15/25 04:09
Physical Exam
Constitutional: No acute distress and Comfortable
EENT: Anicteric and Moist mucous membranes
Cardiovascular: Rhythm & rate is regular, Pedal edema is absent, JVD pressure is normal, S1S2 is normal and Murmur/rub/gallop absent
Respiratory: Respiratory effort normal, Lungs clear to auscul., Wheeze Absent, Crackles Absent and Rhonchi Absent
GI: Soft, Distention absent, Flat, Non tender and Normal bowel sounds
Neuro/Psych: AO x 3
Other: Cath Site (Right radial access site is C/D/I.)
Data Reviewed
-
Date of Service: January 18, 2025
Medical Decision Making: Reviewed Test Results, Independent Historian Assessment and Test Interpretation
EKG: Tracing Personally Visualized and interpreted and Report Reviewed by me
Echo: Tracing Personally Visualized and interpreted and Report Reviewed by me
Medical Tests (PFT, Pathology etc): Image Personally Visualized and interpreted, Report Reviewed by me, Discussed with Physician, Discussed with Nurse, Discussed with Patient and Discussed with Family
Labs: Labs Reviewed by me
--- NOTE | 2025-01-18 08:51 | W.PN.HOSP.TC ---
Today's Communication/Plan
-
Continue current cardiac medication
Plavix on hold for OR
Assessment / Plan
Assessment / Plan
A/P:
Chest pain: Secondary to CAD
History of CAD s/p prior PCI and stenting
Left heart cath 01/16 shows multivessel disease; filling pressures are normal and clinically not in heart failure.
Referred to CT surgery for an input-ongoing evaluation for CABG
Continue DAPT, beta-blockers, SHIMON inhibitor, and statin. He is on Crestor 40 mg at home.
No further chest pain or angina since yesterday.
Echocardiogram showed normal EF with no wall motion abnormality.
Cardiology following.
Possible CABG on Thursday
History of CAD:
Continue DAPT, beta-blockers, SHIMON inhibitor, and statin
Hypertension:
Continue usual meds
Hyperlipidemia:
Continue statin
DVT prophylaxis:
Lovenox SQ
CODE STATUS:
Full code
Anticipated Discharge: > 48 hours
Subjective/Interval History
-
Date of Service: January 18, 2025
No further chest pains.
Denies any shortness of breath.
No nausea vomiting.
No lightheadedness
Objective Data
-
Vital Signs:
Vital Signs
Temp Pulse Resp BP Pulse Ox
97.6 F 69 16 134/91 99
01/18/25 07:29 01/18/25 07:10 01/18/25 07:29 01/18/25 07:10 01/18/25 07:29
I&O
01/17/25 01/18/25 01/19/25
06:59 06:59 06:59
Intake Total 1750 / 1750 240 / 240
Balance 1750 / 1750 240 / 240
Physical Exam
-
General: Comfortable
Respiratory: Clear to Auscultation and Non Labored Respirations; Negative Accessory Resp Muscle Use
Cardiac: Regular Rhythm and S1/S2; Negative Tachycardic
GI: Soft
Neuro: AO x 3
[2025-01-18] MEDS: NORVASC 10 MG PO (09:19)
[2025-01-18] MEDS: ASPIR LOW (ENTERIC COATED) 81 MG PO (09:22)
[2025-01-18] MEDS: ZESTRIL 10 MG PO (09:22)
[2025-01-18 10:22] LABS: Hematocrit 44.2 % (39.0-52.0); Hemoglobin 15.5 g/dL (13.0-18.0); Mean Corp Hgb Conc. 35.1 g/dL (33.0-37.0); Mean Corpuscular Volume 85.7 fL (80.0-94.0); Platelet Count 198 10^3/uL (130-400); Red Blood Cell Count 5.16 10^6/uL (4.70-6.10); Red Cell Dist. Width 12.3 % (11.5-14.5); White Blood Cell Count 6.6 10^3/uL (4.8-10.8)
[2025-01-18 10:30] LABS: APTT 32.5 Sec (23.4-35.0)
--- NOTE | 2025-01-18 10:55 | CM ---
spoke to pt and daughter in room yesterday. we discussed pre op CABG teaching including sternal and driiving restrictions. he is prev indep, lives with his in a 2 story home. he is agreeable to a f/u visit form the ct transitional care nurse
after dc. he has the cardiac educ book. plan is for CABG possibly fri or mon. cm role explained and all questions answered.
[2025-01-18] MEDS: LOVENOX 150 MG SC (11:53)
--- NOTE | 2025-01-18 14:50 | CM ---
CM following for DC planning needs.
Met w/ patient at bedside. Pt. is anticipating CT Surgery on Thursday. He has no questions or concerns at this time.
DC plan is anticipated for home w/ CT Transitional Care RN post CT Surgery.
CM to follow.
--- NOTE | 2025-01-18 17:23 | W.PN.UPDATE ---
Update Note
Progress Note Update
Risks and benefits of surgery discussed. I went over the conduct of surgery with him and his son-in-law on the phone. We discussed the potential complications and his STS risk. Plan is for surgery tomorrow afternoon with me as his TEG showed only
21% inhibition today. All questions were answered to the best of my ability and to his satisfaction.
[2025-01-18] MEDS: CRESTOR 40 MG PO (18:04)
[2025-01-18] MEDS: TOPROL XL 100 MG PO (18:04)
--- NOTE | 2025-01-18 19:35 | PTCARENOTE ---
Pt denied any chest discomfort today. Plan for pt to go to [facility] on 01/19, pt states understanding of pre op plans. he demonstrates excellent technique with incentive spirometer. Telemetry shows sinus rhythm . Pt will be NPO after MN.
--- NOTE | 2025-01-18 23:28 | PTCARENOTE ---
Pt oriented x4 and ambulating self in room w/ out difficulty. Tele remains NSR, HR in the 70's. Patient denies any chest discomfort or SOB at this time. Right radial site PROJECT MANAGEMENT PROFESSIONAL, pt aware of activity restrictions. 1st round of prep completed. Aliyah
Homer YEUNG at bedside to assess shavings. Pt instructed to remain NPO at midnight. Call bailon within reach.
[2025-01-19] VITALS (15 sets, daily range): BP systolic 83–134; BP diastolic 62–96; BMI 33.4
[2025-01-19] MEDS: PROTONIX 40 MG PO (06:26)
[2025-01-19] MEDS: LOPRESSOR 25 MG PO (06:26)
[2025-01-19] MEDS: MAGNESIUM OXIDE 500 MG PO (06:27)
[2025-01-19] MEDS: BACTROBAN 2% OINTMENT 1 APPLIC NASAL ×2 (06:27→20:35)
--- NOTE | 2025-01-19 07:32 | W.PN.CD ---
Today's Communication / Plan
-
CABG.
Impression / Plan
-
Impression/Plan: 54-year-old male with CAD status post PCI, dyslipidemia, hypertension who is here for evaluation of worsening chest pain and dyspnea, concerning for accelerated angina.
#CAD/Accelerating angina
-Found to have multivessel CAD on cardiac catheterization; CABG recommended.
-Patient had episodes of angina 01/16/2025. We will increase enoxaparin to therapeutic to minimize blood draws.
-Continue aspirin, high-dose rosuvastatin, amlodipine and metoprolol succinate.
-TEG reportedly shows 21% inhibition.
-CABG today.
#Hypertension
-Chronic, stable.
-Continue current doses of amlodipine, metoprolol succinate, and lisinopril for now.
#Dyslipidemia
-Chronic, stable.
-Total cholesterol = 194, LDL = 144, HDL = 33, Triglycerides = 89.
-Continue high-dose rosuvastatin (goal LDL < 55).
Subjective/Interval History:
No acute events.
No subjective complaints.
DATA:
Cardiac Catheterization, 01/16/2025:
CONCLUSIONS
1. Right dominant circulation with nonocclusive, tandem 40% and 30-40% lesions in the proximal and mid RCA (IFR = 0.95), a 70% lesion in the distal left main, luminal irregularities with moderate disease in the proximal LAD followed by a focal, 90%
lesion in the mid LAD after the origin of the third diagonal and a 99% lesion in the ostium/proximal margin of the circumflex which demonstrates an acute, 130 degree angulation.
2. Normal filling pressures (LVEDP = 8 mmHg at 98.0 kg).
Transthoracic Echocardiogram, 01/17/2025:
CONCLUSIONS
LV ejection fraction is 60-65%. No regional wall motion abnormalities are seen.
Normal right ventricular size and function.
Mild to moderate tricuspid regurgitation. Estimated pulmonary artery pressure
of 25-30 mmHg.
No prior study available for comparison.
Physical Exam
Vital Signs/Labs
Vital Signs
Temp Pulse Resp BP Pulse Ox
36.8 C 74 18 127/89 96
01/19/25 04:58 01/19/25 07:00 01/19/25 04:58 01/19/25 06:26 01/19/25 04:58
01/17/25 01/18/25 01/19/25
11:59 11:59 11:59
Actual Weight 96.6 kg
01/18/25 10:10
01/17/25 03:51
PT 12.8 Sec (11.4-14.6) 01/14/25 15:18
INR 0.93 01/14/25 15:18
APTT 32.5 Sec (23.4-35.0) 01/18/25 10:10
Magnesium 1.9 mg/dl (1.6-2.3) 01/14/25 22:13
Triglycerides 89 mg/dl (10-149) 01/15/25 04:09
LDL Cholesterol, Calc 144 mg/dl 01/15/25 04:09
VLDL Cholesterol, Calc 17 mg/dl (0-30) 01/15/25 04:09
HDL Cholesterol 33 mg/dl 01/15/25 04:09
Physical Exam
Constitutional: No acute distress and Comfortable
EENT: Anicteric and Moist mucous membranes
Cardiovascular: Rhythm & rate is regular, Pedal edema is absent, JVD pressure is normal, S1S2 is normal and Murmur/rub/gallop absent
Respiratory: Respiratory effort normal, Lungs clear to auscul., Wheeze Absent, Crackles Absent and Rhonchi Absent
GI: Soft, Distention absent, Flat, Non tender and Normal bowel sounds
Neuro/Psych: AO x 3
Data Reviewed
-
Date of Service: January 19, 2025
Medical Decision Making: Reviewed Test Results, Independent Historian Assessment and Test Interpretation
EKG: Tracing Personally Visualized and interpreted and Report Reviewed by me
Echo: Tracing Personally Visualized and interpreted and Report Reviewed by me
X-Ray/CT/US/MRI/NUC/PET: Image Personally Visualized and interpreted and Report Reviewed by me
Medical Tests (PFT, Pathology etc): Image Personally Visualized and interpreted and Report Reviewed by me
Labs: Labs Reviewed by me
--- NOTE | 2025-01-19 07:38 | W.CVOR.SURPR ---
CVOR Surgeon Immed Pre Op
-
I have examined this patient prior to performance of the scheduled procedure.
The patient's condition is unchanged from the time of the dictated/written History and
Physical and the patient is able to undergo the scheduled procedure.
CABG + ALBA Clip
[2025-01-19] MEDS: ASPIR LOW (ENTERIC COATED) PO (09:06)
--- NOTE | 2025-01-19 09:26 | CM ---
Patient in the OR today for CABG with CT surgery.
Reviewed initial assessment. Pt. resides in a [address] with spouse. There are no steps to enter.
Functionally, patient is indep. prior to admission without the use of any assisted device.
Antic. DC plan is for home with CT Transitional Care RN.
CM to follow.
--- NOTE | 2025-01-19 10:10 | PTCARENOTE ---
Pt denies any discomfort, seen by and . Aspirin held this morning per Francine Posadas NP. CHG 2% wipes completed. Pt transported to [facility].
[2025-01-19 10:48] LABS: Urine Albumin 2+ (Neg - Trace); Urine Bilirubin Negative (Negative); Urine Character Clear (Clear); Urine Color Yellow; Urine Glucose Negative (Negative); Urine Ketone 1+ (Negative); Urine Leukocyte Negative (Negative); Urine Nitrite Negative (Negative); Urine Occult Blood 4+ (Negative); Urine Urobilinogen Negative (Neg - 1+)
[2025-01-19 11:35] LABS: Urine Squamous Cell 0-2 /LPF (Few)
[2025-01-19 11:38] LABS: Urine Amorphous Seen; Urine White Cell 0-2 /HPF (0-5)
[2025-01-19 12:57] LABS: B.E. - POC 2.2 mmol/L; Glucose - POC 108 mg/dl (70-99); HCO3 - POC 27 mmol/L (21-28); Hematocrit - POC 40 % PCV (42-52); Hemodilution- POC No; Hemoglobin Calculated - POC 13.5; Ionized Calcium - POC 1.25 mmol/L (1.15-1.33); Lactate - POC 0.74 mmol/L (0.36-0.75); O2 Saturation %Calculated-POC 99.4 % (94-98); PCO2 - POC 40 mmHg (35-48); PO2 - POC 150 mmHg (83-108); POC Comment PRE; Potassium - POC 3.7 mmol/L (3.5-5.1); Sodium - POC 142 mmol/L (136-145); Specimen Type - POC Arterial; pH - POC 7.44 (7.35-7.45)
--- NOTE | 2025-01-19 13:58 | W.PN.UPDATE ---
Update Note
Progress Note Update
Dalton Woods is a 54-year-old, Ethiopian/Italian speaking male with a PMHx of CAD with prior ANURADHA to diagonal (~2019) c/b pericarditis, PUD secondary to NSAID s/p EGD, HTN, and dyslipidemia who presented to [facility] (01/15/25) with complaints of chest
pain on exertion. He was noted to have progressive chest pain with activity over the last 2-3 days leading to his arrival. He was admitted for accelerating angina in which he underwent a LHC (01/16/25) showing multivessel disease. He was referred for
CABG for coronary artery revascularization.
IV fluids: 1800 mL
Crystalloid:� 0 mL
U.O.:� 375 mL
UF:� 1360 mL
Blood:� None
Wires:� V-wires - off
Drips: Levophed (10), Cardene (2.5), Insulin (1)
Sedatives:� Precedex (0.5)
�
NEURO: sedated on Precedex, pupils +2mm B/L
RESP: #8OT @22 cm> 500/40%/12/5. Lungs clear B/L. 2 mediastinal (45cc on arrival) and L pleural (5 cc on arrival) chest tubes to -20cm suction. Sanguineous drainage. No air leak/crepitus.
CV: RRR +S1, S2, no S3, no�rub, no murmur. Dermabond to median sternotomy. RIJ w/ Callaway. CVP 9-10.
ABD: round, soft, no BS
EXT: no edema, +2/4 DP pulses B/L, no femoral bruit, RLE SHIMON wrap intact; R radial A-line intact
: Johnson with clear yellow urine
�
A/P:
#Coronary Artery Disease with Angina
POD #0 s/p CABG x 3 (MOSS-LAD, SVG - Diag, Radial - OM)
ALICIA: EF�65% with no RWMA, mild LVH
- wean and extubate if CT output controlled
- continue insulin infusion x 24 hours (Hgb A1C 5.4%)
- Maintain SBP 90-110 mmHg
- initiate ASA 6-hours post-op, then daily with hold parameters
- initiate Plavix 75 mg POD 1 with hold parameters
- Continue Cardene at 2.5 infusion for radial graft, Norvasc to start HS if extubated, discontinue after second dose of Norvasc 2.5 mg PO
�
# acute surgical blood loss anemia-expected
- Hgb 15.9 pre-operatively, now 13.4
- trend CBC
- monitor CT output
# Hypertension
- Home regiment consist of amlodipine, Toprol XL.
- Lisinopril added during admission.
- Trend BP, reintroduce previous regiment as able postoperatively
#Hyperlipidemia
- resume�home regiment of rosuvastatin 40 mg qPM
[2025-01-19 14:00] LABS: B.E. - POC 0.3 mmol/L; Glucose - POC 215 mg/dl (70-99); HCO3 - POC 25 mmol/L (21-28); Hematocrit - POC 31 % PCV (42-52); Hemodilution- POC Yes; Hemoglobin Calculated - POC 10.7; Ionized Calcium - POC 1.04 mmol/L (1.15-1.33); Lactate - POC 0.93 mmol/L (0.36-0.75); O2 Saturation %Calculated-POC 99.9 % (94-98); PCO2 - POC 41 mmHg (35-48); PO2 - POC 319 mmHg (83-108); POC Comment WARM; Potassium - POC 4.8 mmol/L (3.5-5.1); Sodium - POC 139 mmol/L (136-145); Specimen Type - POC Arterial
[2025-01-19 14:18] LABS: B.E. - POC -1.7 mmol/L; Glucose - POC 177 mg/dl (70-99); HCO3 - POC 24 mmol/L (21-28); Hematocrit - POC 36 % PCV (42-52); Hemodilution- POC Yes; Hemoglobin Calculated - POC 12.2; Ionized Calcium - POC 1.31 mmol/L (1.15-1.33); Lactate - POC 1.24 mmol/L (0.36-0.75); O2 Saturation %Calculated-POC 99.9 % (94-98); PCO2 - POC 41 mmHg (35-48); PO2 - POC 259 mmHg (83-108); POC Comment CPB; Potassium - POC 3.8 mmol/L (3.5-5.1); Sodium - POC 142 mmol/L (136-145); Specimen Type - POC Arterial; pH - POC 7.37 (7.35-7.45)
[2025-01-19 14:19] LABS: ACT+ - POC 126 Seconds (82-134)
[2025-01-19 14:32] LABS: B.E. - POC -0.2 mmol/L; Glucose - POC 185 mg/dl (70-99); HCO3 - POC 26 mmol/L (21-28); Hematocrit - POC 33 % PCV (42-52); Hemodilution- POC Yes; Hemoglobin Calculated - POC 11.1; Ionized Calcium - POC 1.04 mmol/L (1.15-1.33); Lactate - POC < 0.30 mmol/L (0.36-0.75); PCO2 - POC 46 mmHg (35-48); PO2 - POC 484 mmHg (83-108); POC Comment CPB; Potassium - POC 4.3 mmol/L (3.5-5.1); Sodium - POC 141 mmol/L (136-145); Specimen Type - POC Arterial; pH - POC 7.36 (7.35-7.45)
--- NOTE | 2025-01-19 14:34 | W.PN.CT.SURG ---
CT Surgery Operative Note
-
CARDIAC SURGERY OPERATIVE REPORT
Preoperative Diagnosis: Multivessel Coronary Artery Disease with left main involvement and proximal LAD
Postoperative Diagnosis: Same
Procedure(s) Performed:
1. Standard Sternotomy with Aortic and Right Atrial Cannulation
2. Internal Mammary Artery Harvesting, Left
3. Multi arterial coronary artery bypass grafting x 3 (In situ MSOS to LAD, Ao to RSVG to diagonal, Ao to radial artery to OM)
4. Endoscopic left radial artery harvesting and mini incision right lower extremity saphenous vein harvest
5. Transesophageal echocardiography
6. Placement of Temporary Ventricular Pacing Wires
7. Modifier 22 for extensive adhesiolysis due to intrapericardial adhesions that were dense
8. Transonic flow probe assessment of all graft
Date of Surgery: 01/19/2025
Comorbidities:
1. Multivessel coronary disease involving the left main
2. History of pericarditis
3. History of PCI
4. History of peptic ulcer disease
5. Unstable angina
6. Hyperlipidemia
7. Hypertension
Attending Surgeon: Moses Krishnamurthy MD, MS
Assistants: Sancho Marquez PA-C (present and necessary to producer assistant, retraction, suction, exposure, suture management, and wound closure under my direction), Melba Vieyra PA-C (endo radial artery harvest), Moses Woods PA-C (open mini incision vein
harvest)
Anesthesiology: Jose Mejía MD and Ramy Briones CRNA
Scrub and Circulating RNs: Collette Garza, RN, Dacia Coleman RN
All Terrain Vehicle Racer: Aaron Lau CCP
Anesthesia: GETA
EBL: per perfusion records
Products: None
CPB Time: 73 minutes
Aortic Cross Clamp Time: 55 minutes
Indication(s) for Procedures: This is a 54-year-old male with a history of PCI in the past and also has a history of hypertension and pericarditis. He was having accelerating angina and was found to have left main disease approximately disease and
so he opted to stay in hospital for his surgical revascularization. Given his young age, we offered him multi arterial revascularization using left radial artery.
Conduit(s) Quality:
MOSS -excellent, large size conduit, mean flow of MOSS to LAD was 32 cc a minute with a pulse index of 3.0
Left radial artery graft -good, good size quality target mean flow to the OM graft was approximate 21 cc a minute with a pulse index of 4.8
RSVG -good, smaller size conduit but overall uniform in size with minimal varicosities, mean flow to the diagonal vessel was 21 cc a minute with a pulse index of 3.1
Target(s) Quality:
Diagonal-excellent, large quality target
OM -good, decent quality target in size
LAD -excellent, very large quality target easily accommodated 2.0 mm probe
Findings: His left ventricular ejection fraction preoperatively was 60% with no significant regional wall motion abnormalities. Following surgery his EF remained the same at 60% with no new regional wall motion abnormalities. The MOSS was harvested
in a skeletonized fashion. Following bypass grafting, test dose cardioplegia was given down each distal and confirmed patency and hemostasis. Of note, there was a significant amount of backbleeding from the OM vessel despite no significant blood
inside of the aortic root. I wonder if there was some collateralization that has formed here to an extracardiac vessel. This meant that during surgery the heart would intermittently wake up during the anastomosis despite multiple redoses of
cardioplegia. Modifier 22 as there was approximately 45 minutes of extra OR time given the dense intrapericardial adhesions that required extensive adhesiolysis. After weaning off cardiopulmonary bypass he did not require any inotropic support,
cardiac function was normal, he regained sinus rhythm without pacing requirement. No blood products were given all grafts were tested with Transonic flow probe as listed above.
Description of Procedure: The patient was taken to the operating room. Their identity and procedure to be performed were verified and they were positioned supine on the operating table. Induction via general anesthesia with endotracheal intubation
was performed and central venous access and arterial monitoring were inserted. A preoperative transesophageal echocardiogram was performed to assess cardiac function and valvular function. The patient was then prepped and draped from chin to feet in
a sterile fashion. A preoperative time-out was performed with all members of the team present. A midline chest incision was performed along with median sternotomy. Simultaneous endoscopic access of the left radial and open lower extremity for
saphenous vein harvest was obtained along with administration of an initial 5,000 units of IV heparin. A RulTract sternal retractor was positioned to exposure the left internal mammary bed. The mammary was harvested and found to have good flow. A
bulldog clamp was applied to the distal end of the mammary after dividing it. It was wrapped in a papaverine soaked RayTec and replaced back into the left hemithorax. The RulTract was exchanged for a median sternal retractor. The innominate vein was
isolated. This point upon entry into the pericardium, there was dense intrapericardial adhesions which makes sense given his history of pericarditis. I did as much the dissection as I possibly could without going on cardiopulmonary bypass. Once
the aorta and right atrium were freed of scar tissue, full heparinization was given (a total of 50,000 units). We created a pericardial well. The aortic cannulation site was chosen where it was soft, pliable, and free of calcium. Cannulation was
performed with an arterial cannula in the ascending aorta and a triple-stage venous cannula through the right atrial appendage. The arterial cannula line had an appropriate bounce and correlating pressures with test dosing. Next, a root
vent/antegrade cannula was inserted into the ascending aorta. The ACT was confirmed to be over 400 and retrograde autologous priming was performed before commencing cardiopulmonary bypass. At this point, with the heart decompressed in the lung soft
additional dissection was performed to the lateral wall in order to free up the OM target in the apex of the heart. This was done using a combination of blunt dissection and electrocautery. The pulmonary artery was away from the aorta to
facilitate a clamp site. The aortic cross-clamp was placed after decreasing the flow on the bypass and mean arterial pressure. A total of 1.2L initial dose of antegrade Del-Nido cardioplegia solution was given and planned for re-dosing every 75
minutes as necessary. There was electro-mechanical arrest of the heart at 250 cc of cardioplegia however the area immediately surrounding the OM vessel continue to fibrillate I did not go quiescent. I reposition the cross-clamp several times and
placed an additional clamp as well as give additional cardioplegia. The left ventricle was observed for distention on echocardiogram and manual palpation. Cold slush was placed into a sponge and topically on the RV while we systemically cooled to 32
degrees centigrade.
I positioned the heart to expose the lateral wall and OM target. A [place] blade was used to expose the coronary and perform the arteriotomy. Coronary Ugarte scissors were used to enlarge the incision. Of note there was a significant degree of
backbleeding from the OM vessel and so a 2mm shunt was placed in order to facilitate visualization. The radial artery was trimmed and beveled to an appropriate size. The distal anastomosis was performed using 7-0 prolene in an end-to-side fashion.
Antegrade cardioplegia was administered into the graft. Appropriate hemostasis and flow were confirmed. A suitable site on the diagonal was chosen. We dissected and prepared the distal target in a similar fashion. An end-to-side anastomosis was
created with a 7-0 prolene using the vein graft after beveling it. Antegrade cardioplegia was administered into the graft. Appropriate hemostasis and flow were confirmed. The graft was measured for length to the aorta and cut. A suitable target on
the mid/distal left anterior descending was identified. We dissected and prepared the distal target in a similar fashion. We retrieved the MOSS from the chest and created a pericardial opening while being cognizant of the phrenic nerve to facilitate
the course of the mammary. The distal end of the mammary was prepped and beveled to size. We verified orientation and length of the CHRISTY and found brisk flow. An end-to-side anastomosis was created with a 7-0 prolene. We temporarily released the
bulldog clamp on the mammary to inspect flow. Perfusion to the LAD territory was visualized and hemostasis was confirmed. The bull clamp was replaced on the mammary. The heart was filled and the root was distended with antegrade cardioplegia to make
final assessment of graft length and orientation. We created 2 aortotomies using a #11 blade then a 3.6mm aortic punch. The proximal anastomoses were created in an end-to-side fashion using 6-0 prolene for the vein graft and 7-0 Prolene for the
radial graft. At the the same time, we re-warmed to 36.5 degrees centigrade. The bulldog clamp was removed from the mammary. Temporary bipolar ventricular pacing wires were placed on the base of the right ventricle. The patient was placed in a
Trendelenburg position and flows on bypass were lowered. The aortic cross clamp was removed and flows were slowly brought back up. All bypass grafts were inspected and were free from kinking or twisting. The distal and proximal anastomoses appeared
hemostatic. Once transesophageal echocardiography appeared satisfactory for de-airing, the flows were temporarily lowered for root vent removal. After verifying acceptable parameters, we initiated weaning from cardiopulmonary bypass. Once we were
off cardiopulmonary bypass, the venous cannula was clamped and removed. A test dose of protamine was administered and the patient was monitored for any adverse reaction before resuming protamine. Single repair stitch was placed in the radial artery
at its proximal anastomosis using 6-0 Prolene. Once half of the protamine dose was delivered, pump suckers were turned off and the systolic blood pressure was lowered for aortic decannulation. The aortic cannula was removed and pursestrings were
tied down. All cannulation sites were oversewn with a 4-0 prolene. The mammary bed was inspected and hemostasis was confirmed. Once the mediastinum was hemostatic, 19Fr Junior drain was placed in the left pleural cavity and two 24Fr Junior drains were
placed within the pericardium. The sternum was approximated with 4 #7 single and 3 #8 double stainless steel wires. Fascia was approximated with #1 vicryl suture. The subcutaneous, dermis and epidermis were closed in layers in a running fashion. The
skin wound was cleansed and dressed.
All instrument, sponge, and needle counts were confirmed to be correct x 2 at the end of the operation. The patient was transferred to the cardiac intensive care unit in critical but stable condition.
I, Dr. Moses Krishnamurthy, was present, scrubbed for, and performed all critical elements of this procedure.
Moses Krishnamurthy MD, MS
Cardiothoracic Surgeon
[facility]
This operative dictation was created using the [employer] system. Please excuse any grammatical, typographical, or 'sound alike' errors
--- NOTE | 2025-01-19 14:50 | CON.INTV ---
Consultation
Consultation Request
Date/Time Consultation Requested: 01/19/2025 - 1415
Date/Time Consultation Performed: 01/19/2025 - 1431
Requesting Provider: Trixie Saucedo NP
Performing Provider: Dr. Cleaning
Reason for Consultation: CABG x 3
Medical History
-
Chief Complaint: SOB
History of Present Illness:
54-year-old male with a past medical history of CAD s/p ANURADHA complicated by pericarditis, dyslipidemia, hypertension, history of PUD and bilateral knee osteoarthritis who presented with shortness of breath for 2-3 days. Initial EKG showed NSR.
Patient's troponin was negative x 2. Patient was admitted to telemetry due to chest pain with concern for ACS. Patient was continued on his home medications of aspirin + Plavix, as well as his statin. Left heart catheterization was performed on
01/16 due to worsening chest pain, which showed multivessel CAD involving the mid RCA, distal left main coronary artery, proximal LAD + mid LAD and the ostium/proximal margin of the circumflex. LVEDP was normal at 8 mmHg. Cardiothoracic surgery was
consulted. Patient was consented for surgical revascularization, and today he underwent CABG x 3 with extensive adhesiolysis due to intrapericardial adhesions. Patient tolerated the procedure well and was transferred to the CVICU postoperatively.
Audio/Video Technician services consulted for additional management/recommendations.
When I saw the patient he was resting in bed in no acute distress. Currently intubated on pressure support trial on 11/28 with PIP 11 cmH2O, VTe 521 cc and breathing at 14 breaths/min. Currently sedated on Precedex at 1 mcg/kg/hr, Levophed at 7
mcg/min, and on insulin drip at 4 units/hr. Heart rate 87, BP via A-line 108/66, saturating 97% with BP via NIBP: 92/68.
PMHx: Bilateral knee osteoarthritis, hypertension, CAD s/p ANURADHA complicated by pericarditis, dyslipidemia, peptic ulcer while on NSAIDs s/p EGD
PSHx: Coronary stent (2019)
Past Medical History
Past Medical History: Other (Above as per HPI)
Past Surgical History: Other (Above as per HPI)
Social History
Tobacco: Non-smoker
Alcohol: Occasional
Drug: None
Personal:
Living: With Family
Family History
Family History: Diabetes and Hypertension
Allergies / Home Medications
Allergies
Allergy/AdvReac Type Severity Reaction Status Date / Time
No Known Allergies Allergy Unverified 01/14/25 14:21
Home Medications
�Medication �Instructions �Recorded �Confirmed �Last Taken �Type
Metoprolol Tablets 100 mg PO QPM 01/14/25 01/14/25 01/13/25 History
Perindopril 6.78 mg PO DAILY 01/14/25 01/14/25 01/14/25 History
amlodipine 10 mg tablet (Norvasc) 10 mg PO DAILY 01/14/25 01/14/25 01/14/25 History
aspirin 81 mg tablet,delayed 81 mg PO DAILY 01/14/25 01/14/25 01/14/25 History
release
berberine chloride 500 mg capsule 500 mg PO DAILY 01/14/25 01/14/25 Unknown History
clopidogrel 75 mg tablet (Plavix) 75 mg PO QPM 01/14/25 01/14/25 01/13/25 History
coQ10 (ubiquinol) 100 mg capsule 100 mg PO DAILY 01/14/25 01/14/25 Unknown History
indapamide 2.5 mg tablet 2.5 mg PO DAILY 01/14/25 01/14/25 01/14/25 History
magnesium oxide 400 mg PO DAILY 01/14/25 01/14/25 Unknown History
rosuvastatin 40 mg tablet (Crestor) 40 mg PO QPM 01/14/25 01/14/25 01/13/25 History
turmeric 400 mg capsule 400 mg PO DAILY 01/14/25 01/14/25 01/13/25 History
vitamin D3 125 mcg (5,000 1 cap PO DAILY 01/14/25 01/14/25 Unknown History
unit)-vitamin K2 90 mcg capsule
zinc sulfate 50 mg zinc (220 mg) 50 mg PO DAILY 01/14/25 01/14/25 Unknown History
tablet
Review of Systems
-
Unable to Obtain full review of systems at this time due to: Patient Intubation
Vitals / Labs / Diagnostic Testing
Vital Signs
Temp Pulse Resp BP Pulse Ox
96.1 F L 85 12 92/68 95
01/19/25 16:00 01/19/25 16:10 01/19/25 16:00 01/19/25 16:00 01/19/25 16:10
Lab Data
01/19/25 15:03
Laboratory Results
01/19/25 01/19/25
15:03 15:32
PT Cancelled 17.1 H
INR Cancelled 1.37
APTT Cancelled 29.1
pH 7.35
pCO2 42
pO2 71 L
HCO3 23.2
O2 Delivery Level
Diagnostic Testing:
Physical Exam
-
HEENT: Normocephalic, Anicteric and Other (ETT in place)
Cardiovascular: S1/S2 and Peripheral Edema (negative)
Respiratory: Wheeze (negative), Rales (negative), Rhonchi (negative), Non-Labored Respirations and Other (Mechanical breath sounds heard bilaterally)
GI: Soft, Non Distended, Non Tender and Normal Bowel Sounds
Neurology: Tremors (negative) and Other (Sedated)
Skin: Warm and Dry
General: Respiratory Distress (negative), Comfortable, Fever (negative) and Chills (negative)
Assessment
-
Assessment: 54-year-old male with a past medical history of CAD s/p ANURADHA complicated by pericarditis, dyslipidemia, hypertension, history of PUD and bilateral knee osteoarthritis who presented with shortness of breath for 2-3 days. Initial EKG
showed NSR. Patient's troponin was negative x 2. Patient was admitted to telemetry due to chest pain with concern for ACS. Patient was continued on his home medications of aspirin + Plavix, as well as his statin. Left heart catheterization was
performed on 01/16 due to worsening chest pain, which showed multivessel CAD involving the mid RCA, distal left main coronary artery, proximal LAD + mid LAD and the ostium/proximal margin of the circumflex. LVEDP was normal at 8 mmHg.
Cardiothoracic surgery was consulted. Patient was consented for surgical revascularization, and on 01/19/2025 he underwent CABG x 3 with extensive adhesiolysis due to intrapericardial adhesions. Patient tolerated the procedure well and was
transferred to the CVICU postoperatively. Audio/Video Technician services consulted for additional management/recommendations.
Chronic conditions HOSPITALITY MANAGER: Bilateral knee osteoarthritis, hypertension, CAD s/p ANURADHA complicated by pericarditis, dyslipidemia, peptic ulcer while on NSAIDs s/p EGD
Impression:
#Multivessel CAD with left main coronary artery involvement as well as proximal LAD s/p CABG x 3 (POD #0)
#History of pericarditis s/p extensive adhesiolysis due to intrapericardial dense adhesions (POD #0)
#Hyperglycemia (HbA1c: 5.4 on 01/14/2025)
#Hypocalcemia
#CAD s/p ANURADHA complicated by pericarditis
#Dyslipidemia
#History of peptic ulcer disease while on NSAIDs
#Hypertension
#History of bilateral knee osteoarthritis
Plan:
Ventilator settings reviewed
FiO2 will be weaned to maintain SpO2 >90-94%
Minute ventilation will be adjusted
Arterial blood gases will be monitored
Spontaneous breathing trial will be attempted with hopeful extubation after anesthesia/sedation wear off
prn nebulized bronchodilators - not currently bronchospastic
Pulmonary artery catheter parameters will be followed
Pressors/antihypertensive/inotropes/diuretics will be provided as needed
Maintain MAP>65
Replete electrolytes with K>4, Mg>2
Monitor chest tube output (left pleural chest tube x 1 + mediastinal chest tubes x 2)
Monitor hemoglobin
Monitor platelet count and coags
Transfuse blood products as needed to maintain Hb>7g/dL, plt>50k (given post-operative status)
CT surgery managing chest tubes
Monitor blood sugar to maintain euglycemia with goal BG 110-140
Insulin drip per protocol
Aspiration precautions
VAP prevention protocol
DVT prophylaxis
Early nutrition
Early mobilization
Critical care statement: A total of 42 minutes of critical care time was provided for this patient today. This includes management of ventilator, spontaneous breathing trial, arterial blood gases, pressors, of unstable vital signs, evaluation of the
patient at bedside, reviewing the patient's pertinent medical records including radiographs, microbiology, laboratory evaluations, and discussion with primary team and critical care nursing.
[2025-01-19 15:05] LABS: Glucose - Point of Care 165 mg/dl (70-99)
[2025-01-19 15:13] LABS: B.E. -2.4 mmol/L; HCO3 23.2 mmol/L (21-28); Hemoglobin 13.4 g/dL (13.0-18.0); Ionized Calcium 1.12 mMOL/L (1.15-1.33); O2 Saturation % 95.2 % (94-98); PCO2 42 mmHg (35-48); PO2 71 mmHg (83-108); Platelet Count 205 10^3/uL (130-400); Potassium 3.5 mMOL/L (3.5-5.1); Sodium 136 mMOL/L (136-145); pH 7.35 (7.35-7.45)
[2025-01-19] MEDS: ANCEF 10 IV ×2 (15:32)
[2025-01-19 15:33] LABS: Blood Urea Nitrogen 16 mg/dl (9-20); Estimated Creatinine Clearance > 125 ml/min; Glucose 158 mg/dl (70-99); Magnesium 2.4 mg/dl (1.6-2.3)
[2025-01-19] MEDS: LR 250 ML IV ×4 (15:33→22:31)
[2025-01-19] MEDS: NOVOLOG FLEXPEN SC (15:33)
[2025-01-19] MEDS: PACERONE PO (15:33)
[2025-01-19] MEDS: TYLENOL PO ×2 (15:33→20:08)
[2025-01-19] MEDS: NEURONTIN PO (15:33)
[2025-01-19] MEDS: NSS 500 IV (15:33)
[2025-01-19] MEDS: VERSED 0.5 MG IV ×2 (15:45→16:00)
[2025-01-19 15:49] LABS: INR 1.37; PT 17.1 Sec (11.4-14.6)
[2025-01-19 15:51] LABS: APTT 29.1 Sec (23.4-35.0)
[2025-01-19] MEDS: DILAUDID 0.5 MG IV (15:53)
[2025-01-19] MEDS: KCL 50 IV ×2 (16:10→17:03)
[2025-01-19] MEDS: CALCIUM GLUCONATE 100 IV ×2 (16:11→19:54)
--- NOTE | 2025-01-19 16:21 | PTCARENOTE ---
Patient received from [facility]OR at 1455; Sedated and intubated; NSR rhythm on monitor. VSS; Distant heart sounds; Epicardial V wire present with temporary pacemaker settings VVI 50/12/0.8; +1 DP and +2 right radial, and +1 left ulnar present; Lungs
diminished at bases; ETT size 8 positioned and secured at 24 cm right lip - pulled back to 22 cm at rght lip by LOPEZ Schroeder following CXR; Ventilator settings SIMV 12/550/5/5 FiO2 40%; CTx3 to -20 cm wall suction draining bloody drainage - no air
leak, tidaling, or crepitus noted; Hypoactive BS; Johnson catheter in place draining clear, yellow urine; Sternal midline incision glued, approximated, and FOOD AND BEVERAGE CHECKER - CDI, left radial incision wrapped with SHIMON wrap - CDI, right leg incision wrapped in SHIMON
wrap - CDI; Right radial A-line in place, SLIC present in RIJ Cordis - all lines zeroed and leveled; PIVx1 - #20 RAC; Levo, precedex, insulin, and cardene infusing - see nursing flowsheets for further details; K repleted x2, iCal repleted x1, PRN
Dilaudid and PRN Versed given accordingly for pain/agitation; Mediastinal chest tubes oozy - LOPEZ Schroeder notified and DDVAP ordered; See nursing documentation for further information
--- NOTE | 2025-01-19 16:43 | PTCARENOTE ---
RT in room and patient placed on CPAP trial. ABG due at 1710
[2025-01-19] MEDS: DDAVP 57.5 MCG IV (16:47)
[2025-01-19 17:07] LABS: Glucose - Point of Care 205 mg/dl (70-99)
[2025-01-19 17:27] LABS: B.E. - POC -1.2 mmol/L; Blood Urea Nitrogen - POC 16 mg/dl (3-120); Chloride - POC 106 mmol/L (96-111); Creatinine - POC 0.76 mg/dl (0.3-1.0); Glucose - POC 166 mg/dl (70-99); HCO3 - POC 24 mmol/L (21-28); Hematocrit - POC 35 % PCV (42-52); Hemodilution- POC Yes; Hemoglobin Calculated - POC 11.8; Ionized Calcium - POC 1.14 mmol/L (1.15-1.33); Lactate - POC 1.32 mmol/L (0.36-0.75); O2 Saturation %Calculated-POC 97.2 % (94-98); PCO2 - POC 41 mmHg (35-48); PO2 - POC 95 mmHg (83-108); Potassium - POC 4.2 mmol/L (3.5-5.1); Sodium - POC 144 mmol/L (136-145); Specimen Type - POC Arterial; pH - POC 7.38 (7.35-7.45)
--- NOTE | 2025-01-19 17:41 | PTCARENOTE ---
EPOC ABG reviewed with LOPEZ Schroeder; RT at bedside; Patient extubated at 1730 and placed on 6L NC
[2025-01-19] MEDS: CRESTOR PO (17:42)
[2025-01-19 18:14] LABS: Glucose - Point of Care 166 mg/dl (70-99)
[2025-01-19] MEDS: LOW STRENGTH ASPIRIN 81 MG PO (18:33)
[2025-01-19 19:04] LABS: Glucose - Point of Care 143 mg/dl (70-99)
[2025-01-19] MEDS: LEVOPHED 250 IV (19:08)
[2025-01-19 19:13] LABS: Hemoglobin 12.3 g/dL (13.0-18.0); Platelet Count 234 10^3/uL (130-400)
[2025-01-19 19:27] LABS: B.E. -1.4 mmol/L; HCO3 22.8 mmol/L (21-28); Ionized Calcium 1.15 mMOL/L (1.15-1.33); O2 Saturation % 98.4 % (94-98); PCO2 36 mmHg (35-48); PO2 93 mmHg (83-108); Potassium 4.5 mMOL/L (3.5-5.1); pH 7.41 (7.35-7.45)
--- NOTE | 2025-01-19 19:30 | PTCARENOTE ---
Patient received from RN @ 1900. Patient lying in bed w/ call bailon in reach. AOx3 but drowsy. Follows all commands. NSR BP 99/66 HR 98. Heart sounds audible. Right radial pulse present. Left ulnar pulse present but weak on palpation.
Bilateral pedal pulses weak on palpation. Trace edema noted on left hand. V-wires plugged in set to 50/12/0.8. IS 1000. POX 97% 6L NC. 2x mediastina;l and left pleural chest tube set to -20 suction draining red fluid. No crepitus, tidaling, or
air leaks noted. Bilateral lungs diminished in bases. Bowel sounds hypoactive. Moistened mouth swabs. Johnson draining clear yellow urine. Sternal incision well approximated SALES SERVICE ASSISTANT. Chest tube dressing dry and intact. Right leg Jarett wrap dry and
intact. Left forearm Jarett wrap dry and intact. RIJ cordis w/ slick CVP 9. Right radial A-line leveled and zeroed. Right PIV patent and intact. Cardene, Levo, and Insulin infusing.
[2025-01-19 19:31] LABS: Mixed Venous O2 Saturation 64.7 %
[2025-01-19] MEDS: OFIRMEV 100 IV (20:02)
[2025-01-19] MEDS: SENOKOT-S PO (20:08)
[2025-01-19 21:11] LABS: Glucose - Point of Care 132 mg/dl (70-99)
[2025-01-19] MEDS: ANCEF 5 IV (22:20)
[2025-01-19] MEDS: NEURONTIN 100 MG PO (22:21)
[2025-01-19] MEDS: PACERONE 200 MG PO (22:21)
[2025-01-19] MEDS: ROXICODONE 5 MG PO (22:21)
[2025-01-19] MEDS: NORVASC 2.5 MG PO (22:22)
[2025-01-19 22:57] LABS: Glucose - Point of Care 139 mg/dl (70-99)
--- NOTE | 2025-01-19 23:28 | PTCARENOTE ---
Patient reassessed. Sinus tachycardia BP 96/75 HR 103 POX 99% 4L NC. Levo and Insulin infusing. See Worklist for details.
[2025-01-20] VITALS (20 sets, daily range): BP systolic 100–151; BP diastolic 68–105; PULSE 99; O2SAT 99; BMI 34.3
[2025-01-20 00:13] LABS: Glucose - Point of Care 129 mg/dl (70-99)
[2025-01-20 01:05] LABS: Glucose - Point of Care 120 mg/dl (70-99)
[2025-01-20] MEDS: FLEXERIL 5 MG PO ×3 (01:14→19:54)
[2025-01-20 02:04] LABS: Glucose - Point of Care 129 mg/dl (70-99)
[2025-01-20] MEDS: LEVOPHED 250 IV (02:17)
[2025-01-20] MEDS: NOVOLIN R INSULIN INFUSION 100 IV (02:24)
[2025-01-20] MEDS: DILAUDID 0.5 MG IV (02:34)
[2025-01-20 03:14] LABS: Glucose - Point of Care 111 mg/dl (70-99)
[2025-01-20 03:37] LABS: Mixed Venous O2 Saturation 73.6 %
[2025-01-20] MEDS: LR 250 ML IV (03:37)
[2025-01-20 03:43] LABS: Hematocrit 31.3 % (39.0-52.0); Hemoglobin 11.3 g/dL (13.0-18.0); Mean Corp Hgb Conc. 36.1 g/dL (33.0-37.0); Mean Corpuscular Volume 85.8 fL (80.0-94.0); Mean Platelet Volume 11.5 fL (7.4-10.4); Platelet Count 208 10^3/uL (130-400); Red Blood Cell Count 3.65 10^6/uL (4.70-6.10); Red Cell Dist. Width 12.2 % (11.5-14.5); White Blood Cell Count 17.3 10^3/uL (4.8-10.8)
--- NOTE | 2025-01-20 04:00 | PTCARENOTE ---
Patient reassessed. Sinus tachycardia BP 104/68 HR 100 POX 98 2L NC. Labs drawn. Levo and insulin infusing. See Worklist for details. See MAR for pain management.
[2025-01-20 04:11] LABS: Blood Urea Nitrogen 18 mg/dl (9-20); Calcium 8.4 mg/dl (8.4-10.2); Carbon Dioxide 25 mmol/L (22-30); Chloride 111 mmol/L (98-107); Estimated Creatinine Clearance 117 ml/min; Glucose 101 mg/dl (70-99); Potassium 4.2 mmol/L (3.5-5.1); Sodium 141 mmol/L (135-145); eGFR > 60.00
[2025-01-20 05:16] LABS: Glucose - Point of Care 107 mg/dl (70-99)
--- NOTE | 2025-01-20 05:38 | PTCARENOTE ---
A-Line and [place] removed per CT ANJANA Ly.
--- NOTE | 2025-01-20 06:00 | PTCARENOTE ---
Johnson removed @ 0600. Due to void @ 1200. EKG obtained.
[2025-01-20] MEDS: ANCEF 5 IV ×2 (06:17→13:12)
[2025-01-20] MEDS: TYLENOL 1000 MG PO ×3 (06:17→21:58)
--- NOTE | 2025-01-20 06:59 | W.PN.CD ---
Today's Communication / Plan
-
Pain control.
Incentive spirometry.
Ambulate.
Furosemide 40 mg IV x1 tomorrow.
Impression / Plan
-
Impression/Plan: 54-year-old male with CAD status post PCI, dyslipidemia, hypertension admitted with accelerated angina.
#CAD/Accelerating angina
-Chronic, progressive.
-Found to have multivessel CAD on cardiac catheterization; CABG recommended.
-S/P CABG (MOSS to LAD, SVG to Diag, LRA to OM) with Dr. Krishnamurthy, 01/19/2025.
-Routine post operative care.
-Off of pressors/inotropes.
-Wean oxygen as tolerated.
-Incentive spirometry.
-Ambulate when appropriate.
-Pain/chest tube management per CT surgery.
-Continue aspirin, high-dose rosuvastatin, amlodipine and metoprolol succinate.
-Furosemide 40 mg IV x1 tomorrow.
#Hypertension
-Chronic, stable.
-Resume home antihypertensives when BP permits. He will need a CCB for LRA.
#Dyslipidemia
-Chronic, stable.
-Total cholesterol = 194, LDL = 144, HDL = 33, Triglycerides = 89.
-Continue high-dose rosuvastatin (goal LDL < 55) when taking PO.
Subjective/Interval History:
CABG yesterday.
Weight up 2.5 kg from yesterday.
Off pressors/inotropes.
DATA:
Cardiac Catheterization, 01/16/2025:
CONCLUSIONS
1. Right dominant circulation with nonocclusive, tandem 40% and 30-40% lesions in the proximal and mid RCA (IFR = 0.95), a 70% lesion in the distal left main, luminal irregularities with moderate disease in the proximal LAD followed by a focal, 90%
lesion in the mid LAD after the origin of the third diagonal and a 99% lesion in the ostium/proximal margin of the circumflex which demonstrates an acute, 130 degree angulation.
2. Normal filling pressures (LVEDP = 8 mmHg at 98.0 kg).
Transthoracic Echocardiogram, 01/17/2025:
CONCLUSIONS
LV ejection fraction is 60-65%. No regional wall motion abnormalities are seen.
Normal right ventricular size and function.
Mild to moderate tricuspid regurgitation. Estimated pulmonary artery pressure
of 25-30 mmHg.
No prior study available for comparison.
Physical Exam
Vital Signs/Labs
Vital Signs
Temp Pulse Resp BP Pulse Ox
36.8 C 101 19 122/94 99
01/20/25 05:00 01/20/25 06:00 01/20/25 06:00 01/20/25 06:00 01/20/25 06:00
01/18/25 01/19/25 01/20/25
11:59 11:59 11:59
Actual Weight 96.6 kg 99.1 kg
01/20/25 03:29
01/20/25 03:29
PT 17.1 Sec (11.4-14.6) H 01/19/25 15:32
INR 1.37 01/19/25 15:32
APTT 29.1 Sec (23.4-35.0) 01/19/25 15:32
Magnesium 2.0 mg/dl (1.6-2.3) 01/20/25 03:29
Triglycerides 89 mg/dl (10-149) 01/15/25 04:09
LDL Cholesterol, Calc 144 mg/dl 01/15/25 04:09
VLDL Cholesterol, Calc 17 mg/dl (0-30) 01/15/25 04:09
HDL Cholesterol 33 mg/dl 01/15/25 04:09
Physical Exam
Constitutional: No acute distress and Comfortable
EENT: Anicteric and Moist mucous membranes
Cardiovascular: Rhythm & rate is regular, Pedal edema is absent, JVD pressure is normal, S1S2 is normal and Murmur/rub/gallop absent
Respiratory: Respiratory effort normal, Lungs clear to auscul. and Other (Decreased at bases.)
GI: Soft, Distention absent, Flat, Non tender and Normal bowel sounds
Neuro/Psych: AO x 3
Data Reviewed
-
Date of Service: January 20, 2025
Medical Decision Making: Reviewed Test Results, Independent Historian Assessment and Test Interpretation
EKG: Tracing Personally Visualized and interpreted and Report Reviewed by me
Echo: Report Reviewed by me
X-Ray/CT/US/MRI/NUC/PET: Image Personally Visualized and interpreted and Report Reviewed by me
Medical Tests (PFT, Pathology etc): Image Personally Visualized and interpreted and Report Reviewed by me
Labs: Labs Reviewed by me
Old Records: Reviewed
[2025-01-20 07:08] LABS: Glucose - Point of Care 114 mg/dl (70-99)
--- NOTE | 2025-01-20 07:53 | PTCARENOTE ---
Assumed care of patient from manufacturing supervisor 2nd shift RN. AAO x 3 sitting up in the chair. ST on monitor. Epicardial wire insulated. Room air 96%. Chest tubes x 3 to - 20 cm suction. No air leak or crepitus noted. Surgical sites c,d,i. Pulses palpable.
Insulin infusing per glycemic protocol. Plan for day discussed.
--- NOTE | 2025-01-20 08:08 | W.PN.CT ---
Today's Communication / Plan
-
-pod #1
-no issues overnight
-drips: Insulin only. Levo is off
-CT outputs: 2 meds 210/495, L pleur 05/25
-transitioned from iv Cardene to po Norvasc last night
-delined, Johnson dcd
-current meds (ASA, Plavix, Crestor, Norvasc for radial graft, Lopressor, Amio, Protonix)
-encourage IS, OOB
Assessment / Plan
-
- mv-CAD - s/p Multi arterial coronary artery bypass grafting x 3 (In situ MOSS to LAD, Ao to RSVG to diagonal, Ao to radial artery to OM); extensive adhesiolysis due to dense intrapericardial adhesions by Dr. Krishnamurthy on 01/19/25, pod #1
- Intraop ALICIA: LVEF 60% pre and postop with regional wma.
- Multivessel coronary disease involving the left main
- History of pericarditis
- History of PCI
- History of peptic ulcer disease
- Unstable angina
- Hyperlipidemia
- Hypertension
- Acute postop blood loss anemia - stable, no transfusion
- Acute postop coagulopathy - s/p DDAVP
- Acute postop atelectasis
- Acute postop hypovolemia with subsequent hypervolemia
Discussed patient care with: Nursing and Care Team
Subjective
-
Date of Service: January 20, 2025
Objective Data
-
PT 17.1 Sec (11.4-14.6) H 01/19/25 15:32
INR 1.37 01/19/25 15:32
APTT 29.1 Sec (23.4-35.0) 01/19/25 15:32
Vital Signs
Vital Signs
Temp Pulse Resp BP Pulse Ox
98.8 F 100 24 110/73 99
01/20/25 01:57 01/20/25 02:00 01/20/25 02:00 01/20/25 02:00 01/20/25 01:57
CT Intake/Output/Weight
01/19/25 01/19/25 01/20/25
06:59 18:59 06:59
Intake Total 1305.1 / 2038.4 733.3 / 2038.4
Output Total 685 / 1365 680 / 1365
Balance 620.1 / 673.4 53.3 / 673.4
SaO2: 99
Physical Exam
-
General: Awake and AOx3
Cardiovascular: Regular rate & rhythm, No Murmurs and No Rub
Respiratory: Decreased Breath Sounds
Sternum: Stable
Incision: Clean, Dry and Intact
Extremities: No Edema (1+ DPs b/l)
Abdomen: soft, nontender, nondistended, + decreased bowel sounds
Data Reviewed
-
Lab Results: Results Reviewed
Medications: Active Meds Reviewed
Chest X-Ray: Report Reviewed and Image Reviewed
ECG: Report Reviewed and Image Reviewed
--- NOTE | 2025-01-20 08:23 | W.PN.INTV ---
Today's Communication / Plan
Recommendations
Up OOB as tolerated
Pain control
Cardiac rehab consult
Encourage incentive spirometer
Goal BG 110�140
MAP>65
Patient is now being transitioned to CVICU�telemetry status. No additional recommendations at this time. Set Illustrator/Pulmonary service will now sign off. Please reconsult if there are any additional questions/concerns, or if patient's respiratory
status deteriorates.
Assessment
-
Assessment: 54-year-old male with a past medical history of CAD s/p ANURADHA complicated by pericarditis, dyslipidemia, hypertension, history of PUD and bilateral knee osteoarthritis who presented with shortness of breath for 2-3 days. Initial EKG
showed NSR. Patient's troponin was negative x 2. Patient was admitted to telemetry due to chest pain with concern for ACS. Patient was continued on his home medications of aspirin + Plavix, as well as his statin. Left heart catheterization was
performed on 01/16 due to worsening chest pain, which showed multivessel CAD involving the mid RCA, distal left main coronary artery, proximal LAD + mid LAD and the ostium/proximal margin of the circumflex. LVEDP was normal at 8 mmHg.
Cardiothoracic surgery was consulted. Patient was consented for surgical revascularization, and on 01/19/2025 he underwent CABG x 3 with extensive adhesiolysis due to intrapericardial adhesions. Patient tolerated the procedure well and was
transferred to the CVICU postoperatively. Set Illustrator services consulted for additional management/recommendations.
Chronic conditions RN STAFFING: Bilateral knee osteoarthritis, hypertension, CAD s/p ANURADHA complicated by pericarditis, dyslipidemia, peptic ulcer while on NSAIDs s/p EGD
Impression:
#Multivessel CAD with left main coronary artery involvement as well as proximal LAD s/p CABG x 3 (POD #1)
#History of pericarditis s/p extensive adhesiolysis due to intrapericardial dense adhesions (POD #0)
#Hyperglycemia (HbA1c: 5.4 on 01/14/2025)
#Hypocalcemia
#CAD s/p ANURADHA complicated by pericarditis
#Dyslipidemia
#History of peptic ulcer disease while on NSAIDs
#Hypertension
#History of bilateral knee osteoarthritis
Plan:
Patient successfully extubated on 01/19/2025, and is now breathing comfortably on room air saturating 92-93%
Maintain SpO2 >90-94%
prn nebulized bronchodilators - not currently bronchospastic
Encourage incentive spirometer use q1hr while awake
Pulmonary artery catheter parameters will be followed
Pressors/antihypertensive/inotropes/diuretics will be provided as needed
Maintain MAP>65
Replete electrolytes with K>4, Mg>2
Monitor chest tube output (mediastinal chest tubes x 2)
Monitor hemoglobin
Monitor platelet count and coags
Transfuse blood products as needed to maintain Hb>7g/dL, plt>50k (given post-operative status)
CT surgery managing chest tubes
Monitor blood sugar to maintain euglycemia with goal BG 110-140
Insulin drip now off; recommend to use ISS to maintain BG goal as above
Aspiration precautions
DVT prophylaxis
Early nutrition
Early mobilization
Patient is now being transitioned to CVICU�telemetry status. No additional recommendations at this time. Set Illustrator/Pulmonary service will now sign off. Thank you for allowing us to be involved in the care of this patient. Please reconsult if
there are any additional questions/concerns, or if patient's respiratory status deteriorates.
Total time spent today was 58 minutes for this encounter. Time includes reviewing laboratory test/imaging results, reviewing pertinent medical records, obtaining and reviewing medical history, performing an appropriate exam, ordering medications,
tests and procedures. Time also includes documentation of this encounter, coordinating patient care and communicating with other healthcare professionals. Total time does not include separately billed tests performed on this date of service.
Subjective Dataa
Subjective Data
Date of Service:
Date of Service: January 20, 2025
Chief Complaint: Set Illustrator Follow Up
Subjective:
Patient seen earlier today. Sitting in chair no acute distress. Mediastinal chest tubes x [address] R-IJ cordis in place. On room air breathing comfortably, saturating 93% with heart rate 101 and BP 135/91. He mainly has postoperative chest
discomfort but otherwise denies SOB, MENDOZA, nausea, fevers or chills.
Review of Systems
General: Other (Negative unless mentioned above)
Objective Data
Data Reviewed
Vital Signs / I&O / Oxygen:
Vital Signs
Temp Pulse Resp BP Pulse Ox
99.2 F 107 23 131/95 94
01/20/25 07:38 01/20/25 08:50 01/20/25 08:50 01/20/25 08:00 01/20/25 08:15
Intake and Output
01/19/25 01/20/25 01/21/25
06:59 06:59 06:59
Intake Total 1060 / 1060 2136.5 / 2150.0 516.9 / 516.9
Output Total 1615 / 1635 100 / 100
Balance 1060 / 1060 521.5 / 515.0 416.9 / 416.9
SaO2 [CPAP/PSV] 97
SaO2 [SIMV] 96
SaO2 94
Nasal Cannula flow liters per 2
minute
Physical Exam
General: Respiratory Distress (negative), Comfortable, Chills (negative) and Sweats (negative)
HEENT: Normocephalic, Anicteric and Other (R-IJ cordis in place)
Cardiovascular: S1-S2 and Peripheral Edema (negative)
Respiratory: Clear, Wheeze (negative), Crackles (negative), Rhonchi (negative), Non-Labored Respirations and Chest Tube (Mediastinal chest tubes x 2)
GI: Soft, Distended (Abdominal obesity), Non Tender and Normal Bowel Sounds
Neurology: AO x 3, Tremors (negative) and Other (Drowsy at times)
Skin: Warm, Dry, Cyanosis (negative) and Jaundice (negative)
Labs/Micro/Reports
Lab Data
01/20/25 03:29
01/20/25 03:29
Laboratory Results
01/19/25 01/19/25 01/19/25
15:03 15:32 19:22
PT Cancelled 17.1 H
INR Cancelled 1.37
APTT Cancelled 29.1
pH 7.35 7.41
pCO2 42 36
pO2 71 L 93
HCO3 23.2 22.8
O2 Delivery Level
[2025-01-20] MEDS: LIDOCAINE 4% PATCH 1 PATCH TOPICAL (08:24)
[2025-01-20] MEDS: PLAVIX 75 MG PO (08:24)
[2025-01-20] MEDS: MAGNESIUM OXIDE 500 MG PO ×2 (08:25→19:54)
[2025-01-20] MEDS: PACERONE 200 MG PO ×3 (08:25→21:59)
[2025-01-20] MEDS: PROTONIX 40 MG PO (08:25)
[2025-01-20] MEDS: SENOKOT-S 1 TABLET PO ×2 (08:25→19:54)
[2025-01-20] MEDS: NORVASC 2.5 MG PO (08:25)
[2025-01-20] MEDS: NEURONTIN 100 MG PO ×3 (08:25→21:58)
[2025-01-20] MEDS: LOW STRENGTH ASPIRIN 81 MG PO (08:25)
[2025-01-20] MEDS: LOPRESSOR 12.5 MG PO ×2 (08:25→13:12)
[2025-01-20] MEDS: BACTROBAN 2% OINTMENT 1 APPLIC NASAL ×2 (08:25→19:55)
[2025-01-20 09:01] LABS: Glucose - Point of Care 126 mg/dl (70-99)
[2025-01-20] MEDS: NOVOLOG FLEXPEN SC (09:01)
[2025-01-20] MEDS: KCL 20 MEQ PO (09:01)
[2025-01-20] MEDS: LASIX 40 MG IV (09:01)
[2025-01-20] MEDS: ROXICODONE 5 MG PO ×3 (10:25→21:58)
--- NOTE | 2025-01-20 11:56 | PTCARENOTE ---
C/o sternal discomfort, medicated as safely possible. Lt pleural chest removed. Pt tolerated. VSS. Assessment otherwise unchanged from prior.
[2025-01-20 12:17] LABS: Glucose - Point of Care 133 mg/dl (70-99)
[2025-01-20] MEDS: FERRLECIT 110 MG IV (13:12)
[2025-01-20] MEDS: NSS IV (13:15)
[2025-01-20] MEDS: NOVOLOG FLEXPEN 4 UNITS SC (13:18)
[2025-01-20 14:57] LABS: Glucose - Point of Care 108 mg/dl (70-99)
[2025-01-20] MEDS: CRESTOR 40 MG PO (15:01)
--- NOTE | 2025-01-20 15:58 | PTCARENOTE ---
Sitting up in chair. Ambulated w/ RN. Tolerating well VSS. Insulin discontinued per PENSION FUND MANAGER order. Assessment otherwise unchanged from prior.
--- NOTE | 2025-01-20 16:26 | CM ---
dc plan remain home when medically stable with f/u visit from the ct transitional care nurse.
[2025-01-20] MEDS: NOVOLOG FLEXPEN-LOW RESISTANCE SC ×2 (17:03→22:32)
[2025-01-20 17:04] LABS: Glucose - Point of Care 134 mg/dl (70-99)
[2025-01-20] MEDS: LOPRESSOR 50 MG PO (19:54)
--- NOTE | 2025-01-20 20:00 | PTCARENOTE ---
Patient received from RN @ 1900. Patient sitting OOB in chair w/ call bailon in reach. AOx3. Sinus tachycardia BP 148/94 HR 105. Heart sounds audible. Right radial pulse present. Left ulnar pulse present. Bilateral pedal pulses present. +1
edema noted in left hand. V-wires insulated. IS 1000. POX 92% RA. 2x mediastinal chest tubes set to -20 suction draining red fluid. No crepitus, tidaling, or air leaks noted. Lungs diminished bilaterally in bases. Bowel sounds hypoactive.
Voiding clear yellow urine. Sternal incision well approximated MAICOL. Left arm radial incision well approximated MAICOL. Chest tube dressing dry and intact. Right knee incision well approximated WOOL HAT HYDRAULICKER. RIJ cordis and Right PIV patent and intact. See
Worklist for full assessment.
[2025-01-20] MEDS: MELATONIN 5 MG PO (21:58)
[2025-01-20 22:26] LABS: Glucose - Point of Care 162 mg/dl (70-99)
[2025-01-20] MEDS: TORADOL 15 MG IV (23:25)
--- NOTE | 2025-01-20 23:38 | PTCARENOTE ---
Patient reassessed. Patient complains of pain. BP elevated, CT PA Aliyah notified. See MAR and Worklist for details.
--- NOTE | 2025-01-20 23:39 | PTCARENOTE ---
Patient reassessed. NSR BP 140/66 HR 81 POX 97% on CPAP.
[2025-01-21] VITALS (7 sets, daily range): BP systolic 107–145; BP diastolic 55–88; PULSE 100; O2SAT 95; BMI 34.5
[2025-01-21 00:16] LABS: Glucose - Point of Care 159 mg/dl (70-99)
--- NOTE | 2025-01-21 00:29 | PTCARENOTE ---
Blood sugar obtained @ 0015. CT ANJANA Ly notified.
--- NOTE | 2025-01-21 04:24 | PTCARENOTE ---
Patient reassessed. Patient sleeping comfortably in bed. Labs drawn. NSR BP 126/87 HR 88 POX 95% 2L NC.
[2025-01-21 04:29] LABS: Hematocrit 28.5 % (39.0-52.0); Hemoglobin 9.9 g/dL (13.0-18.0); Mean Corp Hgb Conc. 34.7 g/dL (33.0-37.0); Mean Corpuscular Hgb 30.1 pg (27.0-31.0); Mean Corpuscular Volume 86.6 fL (80.0-94.0); Mean Platelet Volume 11.6 fL (7.4-10.4); Platelet Count 180 10^3/uL (130-400); Red Blood Cell Count 3.29 10^6/uL (4.70-6.10); Red Cell Dist. Width 12.7 % (11.5-14.5); White Blood Cell Count 17.3 10^3/uL (4.8-10.8)
[2025-01-21 05:14] LABS: Blood Urea Nitrogen 30 mg/dl (9-20); Calcium 8.3 mg/dl (8.4-10.2); Carbon Dioxide 26 mmol/L (22-30); Chloride 107 mmol/L (98-107); Estimated Creatinine Clearance 105 ml/min; Glucose 124 mg/dl (70-99); Magnesium 2.2 mg/dl (1.6-2.3); Potassium 4.9 mmol/L (3.5-5.1); Sodium 139 mmol/L (135-145); eGFR > 60.00
--- NOTE | 2025-01-21 05:52 | W.PN.CT ---
Addendum entered and electronically signed by Dago Britt MD 01/21/25 08:27:
I saw and examined the patient.
The PA's note was reviewed and I agree with the note.
Comment:
No issues.� Maintain CT today, hopeful removal tomorrow.� OOB/IS. Diuresis.
Original Note:
Today's Communication / Plan
-
-pod #2
-no issues overnight
-CT outputs: 2 meds 110/300 in 12/24 hrs
-wean off O2 as tolerated
-wt is up postop - diurese
-current meds (ASA, Plavix, Crestor, Norvasc for radial graft, Lopressor 50 bid, Amio, Protonix)
-encourage IS, OOB
Assessment / Plan
-
- mv-CAD - s/p Multi arterial coronary artery bypass grafting x 3 (In situ MOSS to LAD, Ao to RSVG to diagonal, Ao to radial artery to OM); extensive adhesiolysis due to dense intrapericardial adhesions by Dr. Krishnamurthy on 01/19/25, pod #2
- Intraop ALICIA: LVEF 60% pre and postop with regional wma.
- Multivessel coronary disease involving the left main
- History of pericarditis
- History of PCI
- History of peptic ulcer disease
- Unstable angina
- Hyperlipidemia
- Hypertension
- Acute postop blood loss anemia - stable, no transfusion
- Acute postop coagulopathy - s/p DDAVP
- Acute postop atelectasis
- Acute postop hypovolemia with subsequent hypervolemia
Discussed patient care with: Nursing and Care Team
Subjective
-
Date of Service: January 21, 2025
Objective Data
-
Lab Results
01/21/25 04:04
01/21/25 04:04
PT 17.1 Sec (11.4-14.6) H 01/19/25 15:32
INR 1.37 01/19/25 15:32
APTT 29.1 Sec (23.4-35.0) 01/19/25 15:32
Vital Signs
Vital Signs
Temp Pulse Resp BP Pulse Ox
98.6 F 93 15 126/87 95
01/21/25 03:00 01/21/25 04:00 01/21/25 03:00 01/21/25 03:51 01/21/25 04:00
CT Intake/Output/Weight
01/20/25 01/20/25 01/21/25
06:59 18:59 06:59
Intake Total 831.4 / 2150.0 814.9 / 844.9 30 / 844.9
Output Total 930 / 1635 410 / 720 310 / 720
Balance -98.6 / 515.0 404.9 / 124.9 -280 / 124.9
SaO2: 95
Physical Exam
-
General: Awake and AOx3
Cardiovascular: Regular rate & rhythm, No Murmurs and No Rub
Respiratory: Decreased Breath Sounds
Sternum: Stable
Incision: Clean, Dry and Intact
Abdomen: soft, nontender, nondistended, + decreased bowel sounds
Extremities: No Edema (1+ DPs b/l)
Data Reviewed
-
Lab Results: Results Reviewed
Medications: Active Meds Reviewed
Chest X-Ray: Report Reviewed and Image Reviewed
ECG: Report Reviewed and Image Reviewed
[2025-01-21] MEDS: TYLENOL 1000 MG PO (06:27)
[2025-01-21 07:55] LABS: Glucose - Point of Care 220 mg/dl (70-99)
[2025-01-21] MEDS: TORADOL 15 MG IV ×2 (08:05→16:46)
[2025-01-21] MEDS: LOW STRENGTH ASPIRIN 81 MG PO (08:05)
[2025-01-21] MEDS: NOVOLOG FLEXPEN-LOW RESISTANCE 2 UNITS SC (08:05)
[2025-01-21] MEDS: BACTROBAN 2% OINTMENT 1 APPLIC NASAL ×2 (08:05→20:15)
[2025-01-21] MEDS: PACERONE 200 MG PO ×3 (08:06→22:06)
[2025-01-21] MEDS: PROTONIX 40 MG PO (08:06)
[2025-01-21] MEDS: MAGNESIUM OXIDE 500 MG PO ×2 (08:06→20:13)
[2025-01-21] MEDS: NORVASC 2.5 MG PO (08:06)
[2025-01-21] MEDS: PLAVIX 75 MG PO (08:06)
[2025-01-21] MEDS: NEURONTIN 100 MG PO ×3 (08:06→22:06)
[2025-01-21] MEDS: LIDOCAINE 4% PATCH 1 PATCH TOPICAL (08:06)
[2025-01-21] MEDS: SENOKOT-S 1 TABLET PO ×2 (08:06→20:13)
[2025-01-21] MEDS: LOPRESSOR 50 MG PO (08:06)
--- NOTE | 2025-01-21 08:45 | PTCARENOTE ---
Assumed care of patient from placing judge RN. AAO x 3 sitting up in the chair. c/o sternal discomfort but tolerable at present. ST on monitor. Epicardial wire insulated. Room air 94%, IS to 1000, Chest tubes x 2 to - 20 cm suction. No air leak
or crepitus noted. Voiding spontaneously , abdomen with positive bowel sounds/flatus. Surgical sites well approximated. Pulses palpable. Plan for day discussed.
--- NOTE | 2025-01-21 12:00 | PTCARENOTE ---
Ambulating in hallway with RN, gait steady. VSS. Chest tubes maintained. Assessment otherwise unchanged from prior.
[2025-01-21] MEDS: NOVOLOG FLEXPEN-LOW RESISTANCE 1 UNITS SC ×2 (13:26→20:08)
[2025-01-21 13:27] LABS: Glucose - Point of Care 165 mg/dl (70-99)
[2025-01-21] MEDS: NSS IV (14:18)
[2025-01-21] MEDS: TYLENOL PO ×3 (14:18→22:10)
[2025-01-21] MEDS: FERRLECIT 110 MG IV (14:18)
--- NOTE | 2025-01-21 14:24 | W.PN.CD ---
Today's Communication / Plan
-
continue aspirin, Plavix, high-dose rosuvastatin, amlodipine and metoprolol
trend tele
Impression / Plan
-
Impression/Plan: 54-year-old male with CAD status post PCI, dyslipidemia, hypertension admitted with accelerated angina.
#CAD/Accelerating angina
-Found to have multivessel CAD on cardiac catheterization; CABG recommended.
-S/P CABG (MOSS to LAD, SVG to Diag, LRA to OM) with Dr. Krishnamurthy, 01/19/2025.
-Continue aspirin, Plavix, high-dose rosuvastatin, amlodipine and metoprolol
#Hypertension
-Chronic, stable.
-Resume home antihypertensives when BP permits. He is on amldoipine for LRA.
#Dyslipidemia
-Chronic, stable.
-Total cholesterol = 194, LDL = 144, HDL = 33, Triglycerides = 89.
-Continue high-dose rosuvastatin (goal LDL < 55) when taking PO.
DATA:
Cardiac Catheterization, 01/16/2025:
CONCLUSIONS
1. Right dominant circulation with nonocclusive, tandem 40% and 30-40% lesions in the proximal and mid RCA (IFR = 0.95), a 70% lesion in the distal left main, luminal irregularities with moderate disease in the proximal LAD followed by a focal, 90%
lesion in the mid LAD after the origin of the third diagonal and a 99% lesion in the ostium/proximal margin of the circumflex which demonstrates an acute, 130 degree angulation.
2. Normal filling pressures (LVEDP = 8 mmHg at 98.0 kg).
Transthoracic Echocardiogram, 01/17/2025:
CONCLUSIONS
LV ejection fraction is 60-65%. No regional wall motion abnormalities are seen.
Normal right ventricular size and function.
Mild to moderate tricuspid regurgitation. Estimated pulmonary artery pressure
of 25-30 mmHg.
No prior study available for comparison.
Physical Exam
Vital Signs/Labs
Vital Signs
Temp Pulse Resp BP Pulse Ox
98.8 F 97 18 130/83 94
01/21/25 08:22 01/21/25 08:25 01/21/25 08:22 01/21/25 08:06 01/21/25 11:16
01/20/25 01/21/25 01/22/25
06:59 06:59 06:59
Actual Weight 99.1 kg 99.7 kg
01/21/25 04:04
01/21/25 04:04
PT 17.1 Sec (11.4-14.6) H 01/19/25 15:32
INR 1.37 01/19/25 15:32
APTT 29.1 Sec (23.4-35.0) 01/19/25 15:32
Magnesium 2.2 mg/dl (1.6-2.3) 01/21/25 04:04
Triglycerides 89 mg/dl (10-149) 01/15/25 04:09
LDL Cholesterol, Calc 144 mg/dl 01/15/25 04:09
VLDL Cholesterol, Calc 17 mg/dl (0-30) 01/15/25 04:09
HDL Cholesterol 33 mg/dl 01/15/25 04:09
Physical Exam
Constitutional: No acute distress and Comfortable
EENT: Moist mucous membranes
Cardiovascular: Rhythm & rate is regular, JVD pressure is normal, Systolic murmur absent and Pedal edema present
Respiratory: Respiratory effort normal and Lungs clear to auscul.
Neuro/Psych: AO x 3
Data Reviewed
-
Date of Service: January 21, 2025
EKG: Other (Tele: SR 80s)
Labs: Labs Reviewed by me
[2025-01-21] MEDS: ROXICODONE 5 MG PO ×2 (16:05→22:06)
[2025-01-21] MEDS: CRESTOR 40 MG PO (16:05)
[2025-01-21 19:55] LABS: Glucose - Point of Care 157 mg/dl (70-99)
[2025-01-21] MEDS: LOPRESSOR 75 MG PO (20:13)
--- NOTE | 2025-01-21 21:06 | PTCARENOTE ---
Patient received from RN @ 1900. Patient sitting OOB in chair w/ call bailon in reach. AOx3. Sinus tachycardia BP 118/73 HR 112 . Heart sounds audible. Right radial pulse present. Left ulnar pulse present. Bilateral pedal pulses present. trace
edema noted in left hand. V-wires insulated. IS 1000. POX 92% RA. 2x mediastinal chest tubes set to -20 suction draining old dark red fluid. No crepitus, tidaling, or air leaks noted. Lungs diminished bilaterally in bases. Bowel sounds
present. Voiding clear yellow urine. Sternal incision well approximated MAICOL. Left arm radial incision well approximated DOG GROOMER. Chest tube dressing dry and intact. Right knee incision well approximated MAICOL. RIJ cordis and Right PIV patent and
intact. See Worklist for full assessment.
[2025-01-21] MEDS: MELATONIN 5 MG PO (22:06)
[2025-01-21 22:31] LABS: Glucose - Point of Care 131 mg/dl (70-99)
[2025-01-21] MEDS: NOVOLOG FLEXPEN-LOW RESISTANCE SC (22:31)
[2025-01-22] VITALS (11 sets, daily range): BP systolic 104–130; BP diastolic 65–79; BMI 34.8
[2025-01-22] MEDS: NSS 500 IV (00:16)
--- NOTE | 2025-01-22 00:21 | PTCARENOTE ---
Patient reassessed. Patient sleeping in bed comfortably w/ call bailon in reach. NSR BP 111/71 HR 87 POX 94% 2L NC.
[2025-01-22] MEDS: TORADOL 15 MG IV (01:15)
[2025-01-22 04:06] LABS: Hematocrit 25.7 % (39.0-52.0); Mean Corpuscular Hgb 30.7 pg (27.0-31.0); Mean Corpuscular Volume 87.7 fL (80.0-94.0); Mean Platelet Volume 11.2 fL (7.4-10.4); Platelet Count 165 10^3/uL (130-400); Red Blood Cell Count 2.93 10^6/uL (4.70-6.10); Red Cell Dist. Width 12.8 % (11.5-14.5); White Blood Cell Count 13.6 10^3/uL (4.8-10.8)
--- NOTE | 2025-01-22 04:32 | PTCARENOTE ---
Patient reassessed. NSR BP 113/79 HR 86 POX 95% 2L NC.
[2025-01-22 04:39] LABS: Blood Urea Nitrogen 26 mg/dl (9-20); Carbon Dioxide 26 mmol/L (22-30); Chloride 110 mmol/L (98-107); Estimated Creatinine Clearance 119 ml/min; Glucose 113 mg/dl (70-99); Magnesium 2.1 mg/dl (1.6-2.3); Potassium 4.4 mmol/L (3.5-5.1); Sodium 138 mmol/L (135-145); eGFR > 60.00
[2025-01-22] MEDS: TYLENOL 1000 MG PO ×3 (05:35→21:58)
[2025-01-22 06:52] LABS: Glucose - Point of Care 119 mg/dl (70-99)
--- NOTE | 2025-01-22 07:52 | W.PN.CT ---
Addendum entered and electronically signed by Dago Britt MD 01/22/25 09:40:
I saw and examined the patient.
The PA's note was reviewed and I agree with the note.
Comment:
POD#3
Doing well
D/C pacing wires - done
D/C CTs
OOB/IS/ambulate
D/C planning for hopefully tomorrow
Original Note:
Today's Communication / Plan
-
-pod #3
-doing well, no issues overnight
-CT outputs: 2 meds 40/238 in 12/24 hrs
-wean off O2 as tolerated - pOx 95% on 2L
-encourage IS, ambulate
-possible d/c soon
Assessment / Plan
-
- mv-CAD - s/p Multi arterial coronary artery bypass grafting x 3 (In situ MOSS to LAD, Ao to RSVG to diagonal, Ao to radial artery to OM); extensive adhesiolysis due to dense intrapericardial adhesions by Dr. Krishnamurthy on 01/19/25, pod #3
- Intraop ALICIA: LVEF 60% pre and postop with regional wma.
- Multivessel coronary disease involving the left main
- History of pericarditis
- History of PCI
- History of peptic ulcer disease
- Unstable angina
- Hyperlipidemia
- Hypertension
- Acute postop blood loss anemia - stable, no transfusion
- Acute postop coagulopathy - s/p DDAVP
- Acute postop atelectasis
- Acute postop hypovolemia with subsequent hypervolemia
Discussed patient care with: Nursing and Care Team
Subjective
-
Date of Service: January 22, 2025
Objective Data
-
Lab Results
01/22/25 03:56
01/22/25 03:56
PT 17.1 Sec (11.4-14.6) H 01/19/25 15:32
INR 1.37 01/19/25 15:32
APTT 29.1 Sec (23.4-35.0) 01/19/25 15:32
Vital Signs
Vital Signs
Temp Pulse Resp BP Pulse Ox
97.6 F 90 18 113/79 95
01/22/25 04:00 01/22/25 04:31 01/22/25 04:00 01/22/25 04:31 01/22/25 04:30
CT Intake/Output/Weight
01/21/25 01/22/25 01/22/25
18:59 06:59 18:59
Intake Total 1180 / 1210 30 / 1210
Output Total 398 / 888 490 / 888
Balance 782 / 322 -460 / 322
SaO2: 95
Physical Exam
-
General: Awake and AOx3
Cardiovascular: Regular rate & rhythm, No Murmurs and No Rub
Respiratory: Decreased Breath Sounds
Sternum: Stable
Incision: Clean, Dry and Intact
Extremities: No Edema
Abdomen: soft, nondistended, nontender, + bowel sounds
Data Reviewed
-
Lab Results: Results Reviewed
Medications: Active Meds Reviewed
Chest X-Ray: Report Reviewed and Image Reviewed
ECG: Report Reviewed and Image Reviewed
--- NOTE | 2025-01-22 08:00 | PTCARENOTE ---
Assumed care of patient from weed cutter RN. AAO x 3 SR on monitor. Epicardial wire insulated. Room air 95%, IS to 1000, chest tubes x 2 to - 20 cm suction. No air leak or crepitus noted. Abdomen soft and non tender. Voiding w/o issue. Pulses
palpable. Surgical sites well approximated.Plan for the day reviewed
[2025-01-22] MEDS: NOVOLOG FLEXPEN-LOW RESISTANCE SC ×4 (08:04→22:18)
[2025-01-22] MEDS: LOPRESSOR 75 MG PO ×2 (08:04→20:00)
[2025-01-22] MEDS: PROTONIX 40 MG PO (08:04)
[2025-01-22] MEDS: PLAVIX 75 MG PO (08:04)
[2025-01-22] MEDS: MAGNESIUM OXIDE 500 MG PO ×2 (08:05→19:59)
[2025-01-22] MEDS: LIDOCAINE 4% PATCH 1 PATCH TOPICAL (08:05)
[2025-01-22] MEDS: NEURONTIN 100 MG PO ×3 (08:05→21:59)
[2025-01-22] MEDS: LOW STRENGTH ASPIRIN 81 MG PO (08:05)
[2025-01-22] MEDS: PACERONE 200 MG PO ×3 (08:05→22:00)
[2025-01-22] MEDS: SENOKOT-S 1 TABLET PO (08:05)
[2025-01-22] MEDS: BACTROBAN 2% OINTMENT 1 APPLIC NASAL ×2 (08:05→19:59)
[2025-01-22] MEDS: NORVASC 2.5 MG PO (08:05)
[2025-01-22] MEDS: ROXICODONE 5 MG PO ×2 (08:22→21:57)
--- NOTE | 2025-01-22 09:53 | PTCARENOTE ---
Chest tubes removed per order. Pt tolerated w/o issue, Ambulated to chair after.
--- NOTE | 2025-01-22 12:52 | PTCARENOTE ---
Ambulating at david in hallway. Denies complaint. Feels much better without chest tubes. VSS. Assessment otherwise unchanged from prior.
--- NOTE | 2025-01-22 13:07 | W.PN.CD ---
Today's Communication / Plan
-
continue aspirin, Plavix, high-dose rosuvastatin, amlodipine and metoprolol
trend tele
Impression / Plan
-
Impression/Plan: 54-year-old male with CAD status post PCI, dyslipidemia, hypertension admitted with accelerated angina.
#CAD/Accelerating angina
-Found to have multivessel CAD on cardiac catheterization; CABG recommended.
-S/P CABG (MOSS to LAD, SVG to Diag, LRA to OM) with Dr. Krishnamurthy, 01/19/2025.
-Continue aspirin, Plavix, high-dose rosuvastatin, amlodipine and metoprolol
-trend tele
#Hypertension
-Chronic, stable.
-Resume home antihypertensives as BP permits. He is on amldoipine for LRA.
#Dyslipidemia
-Chronic, stable.
-Total cholesterol = 194, LDL = 144, HDL = 33, Triglycerides = 89.
-Continue high-dose rosuvastatin (goal LDL < 55)
DATA:
Cardiac Catheterization, 01/16/2025:
CONCLUSIONS
1. Right dominant circulation with nonocclusive, tandem 40% and 30-40% lesions in the proximal and mid RCA (IFR = 0.95), a 70% lesion in the distal left main, luminal irregularities with moderate disease in the proximal LAD followed by a focal, 90%
lesion in the mid LAD after the origin of the third diagonal and a 99% lesion in the ostium/proximal margin of the circumflex which demonstrates an acute, 130 degree angulation.
2. Normal filling pressures (LVEDP = 8 mmHg at 98.0 kg).
Transthoracic Echocardiogram, 01/17/2025:
CONCLUSIONS
LV ejection fraction is 60-65%. No regional wall motion abnormalities are seen.
Normal right ventricular size and function.
Mild to moderate tricuspid regurgitation. Estimated pulmonary artery pressure
of 25-30 mmHg.
No prior study available for comparison.
Physical Exam
Vital Signs/Labs
Vital Signs
Temp Pulse Resp BP Pulse Ox
98.9 F 88 18 121/78 95
01/22/25 12:00 01/22/25 12:00 01/22/25 12:00 01/22/25 08:30 01/22/25 12:00
01/21/25 01/22/25 01/23/25
06:59 06:59 06:59
Actual Weight 99.7 kg 100.6 kg
01/22/25 03:56
01/22/25 03:56
PT 17.1 Sec (11.4-14.6) H 01/19/25 15:32
INR 1.37 01/19/25 15:32
APTT 29.1 Sec (23.4-35.0) 01/19/25 15:32
Magnesium 2.1 mg/dl (1.6-2.3) 01/22/25 03:56
Triglycerides 89 mg/dl (10-149) 01/15/25 04:09
LDL Cholesterol, Calc 144 mg/dl 01/15/25 04:09
VLDL Cholesterol, Calc 17 mg/dl (0-30) 01/15/25 04:09
HDL Cholesterol 33 mg/dl 01/15/25 04:09
Physical Exam
Constitutional: No acute distress and Comfortable
EENT: Moist mucous membranes
Cardiovascular: Rhythm & rate is regular, Pedal edema is absent, JVD pressure is normal and Systolic murmur absent
Respiratory: Respiratory effort normal and Lungs clear to auscul.
Neuro/Psych: AO x 3
Data Reviewed
-
Date of Service: January 22, 2025
EKG: Other (Tele: SR 80s-90s)
Labs: Labs Reviewed by me
[2025-01-22] MEDS: FERRLECIT 110 MG IV (14:00)
[2025-01-22] MEDS: CRESTOR 40 MG PO (15:35)
--- NOTE | 2025-01-22 16:50 | PTCARENOTE ---
Rt IJ cordis removed, hemostasis achieved, pt self reported he had a large solid BM in bathroom. Ambulating on own. VSS. Assessment otherwise unchanged from prior.
--- NOTE | 2025-01-22 20:00 | PTCARENOTE ---
Patient received from RN @ 1900. Patient sitting OOB in chair w/ call bailon in reach. AOx3. Sinus tachycardia BP 105/67 HR 105 . Heart sounds audible. Right radial pulse present. Left ulnar pulse present. Bilateral pedal pulses present. trace
edema noted in left hand. IS 1250. POX 92% RA. Lungs diminished bilaterally in bases. Bowel sounds present. Voiding clear yellow urine. Sternal incision well approximated MAICOL. Left arm radial incision well approximated MAICOL. Chest tube
dressing dry and intact. Right knee incision well approximated MAICOL. Right PIV patent and intact. See Worklist for full assessment.
[2025-01-22] MEDS: SENOKOT-S PO (20:01)
[2025-01-22] MEDS: MELATONIN 5 MG PO (21:57)
[2025-01-23] VITALS: BP 107/75
--- NOTE | 2025-01-23 00:09 | PTCARENOTE ---
Patient reassessed. NSR BP 107/75 HR 84 POX 94% 2L NC.
--- NOTE | 2025-01-23 00:19 | W.PN.CT ---
Today's Communication / Plan
-
No issues overnight�
Encourage IS and ambulate�
Continue (amiodarone, aspirin, Plavix, gabapentin, rosuvastatin, amlodipine, metoprolol)
Plan for DC today�
Assessment / Plan
-
- mv-CAD - s/p Multi arterial coronary artery bypass grafting x 3 (In situ MOSS to LAD, Ao to RSVG to diagonal, Ao to radial artery to OM); extensive adhesiolysis due to dense intrapericardial adhesions by Dr. Krishnamurthy on 01/19/25, pod #4
- Intraop ALICIA: LVEF 60% pre and postop with regional wma.
- Multivessel coronary disease involving the left main
- History of pericarditis
- History of PCI
- History of peptic ulcer disease
- Unstable angina
- Hyperlipidemia
- Hypertension
- Acute postop blood loss anemia - stable, no transfusion
- Acute postop coagulopathy - s/p DDAVP
- Acute postop atelectasis
- Acute postop hypovolemia with subsequent hypervolemia
Subjective
-
Date of Service: January 23, 2025
Objective Data
-
PT 17.1 Sec (11.4-14.6) H 01/19/25 15:32
INR 1.37 01/19/25 15:32
APTT 29.1 Sec (23.4-35.0) 01/19/25 15:32
Vital Signs
Vital Signs
Temp Pulse Resp BP Pulse Ox
98.7 F 84 17 107/75 94
01/23/25 00:00 01/23/25 00:05 01/23/25 00:00 01/23/25 00:00 01/23/25 00:00
CT Intake/Output/Weight
01/22/25 01/22/25 01/23/25
06:59 18:59 06:59
Intake Total 30 / 1210 1010 / 1010
Output Total 490 / 888 220 / 445 225 / 445
Balance -460 / 322 790 / 565 -225 / 565
SaO2: 94
Physical Exam
-
General: Awake
Cardiovascular: Regular rate & rhythm
Respiratory: Clear and Equal
Sternum: Stable
Incision: Clean, Dry and Intact
Extremities: No Edema
[2025-01-23 03:23] VITALS: BP 111/73
--- NOTE | 2025-01-23 03:45 | PTCARENOTE ---
Patient assessment unchanged. NSR. VSS
[2025-01-23 04:49] LABS: Hematocrit 25.7 % (39.0-52.0); Hemoglobin 8.9 g/dL (13.0-18.0); Mean Corp Hgb Conc. 34.6 g/dL (33.0-37.0); Mean Corpuscular Hgb 30.6 pg (27.0-31.0); Mean Corpuscular Volume 88.3 fL (80.0-94.0); Mean Platelet Volume 11.2 fL (7.4-10.4); Platelet Count 198 10^3/uL (130-400); Red Blood Cell Count 2.91 10^6/uL (4.70-6.10); Red Cell Dist. Width 12.9 % (11.5-14.5); White Blood Cell Count 11.4 10^3/uL (4.8-10.8)
[2025-01-23 04:52] VITALS: BMI 34.5
[2025-01-23 05:13] LABS: Blood Urea Nitrogen 18 mg/dl (9-20); Calcium 8.4 mg/dl (8.4-10.2); Carbon Dioxide 25 mmol/L (22-30); Chloride 109 mmol/L (98-107); Estimated Creatinine Clearance 119 ml/min; Glucose 102 mg/dl (70-99); Magnesium 2.2 mg/dl (1.6-2.3); Potassium 4.7 mmol/L (3.5-5.1); Sodium 138 mmol/L (135-145); eGFR > 60.00
[2025-01-23] MEDS: TYLENOL PO ×2 (06:58→15:30)
[2025-01-23 07:47] VITALS: BP 126/74
--- NOTE | 2025-01-23 08:00 | PTCARENOTE ---
Assumed care of patient from third shift lieutenant RN. JOSE RAFAELO x 3 sitting up in the chair. denies complaint, eager to possibly go home today. VSS. SR on monitor. Room air. Surgical sites well approximated. And pulses palpable.
[2025-01-23] MEDS: LOPRESSOR 75 MG PO (08:27)
[2025-01-23] MEDS: PROTONIX 40 MG PO (08:27)
[2025-01-23] MEDS: PLAVIX 75 MG PO (08:27)
[2025-01-23] MEDS: LOW STRENGTH ASPIRIN 81 MG PO (08:28)
[2025-01-23] MEDS: NORVASC 2.5 MG PO (08:28)
[2025-01-23] MEDS: PACERONE 200 MG PO ×2 (08:28→15:59)
[2025-01-23] MEDS: NEURONTIN 100 MG PO ×2 (08:28→15:59)
[2025-01-23] MEDS: MAGNESIUM OXIDE 500 MG PO (08:28)
[2025-01-23] MEDS: BACTROBAN 2% OINTMENT 1 APPLIC NASAL (08:29)
[2025-01-23] MEDS: NOVOLOG FLEXPEN-LOW RESISTANCE SC ×3 (08:29→17:03)
[2025-01-23] MEDS: LIDOCAINE 4% PATCH TOPICAL (08:29)
[2025-01-23] MEDS: SENOKOT-S PO (08:29)
[2025-01-23 09:52] VITALS: BP 107/81; BP 119/78; PULSE 80; O2SAT 96; O2SAT 97
--- NOTE | 2025-01-23 09:54 | W.DCSUMMARY ---
Discharge Summary
Discharge Data
Date of Admission: 01/16/25
Date of Discharge: 01/23/25
-
Pending Results: No
Hospital Course
Primary care physician: Miguel Ansari MD
Outpatient final inspector truck trailer: Merlene Dia MD
Inpatient consultants: cardiology, intensivists
Procedures:
1. Multi Arterial Coronary Artery Bypass Grafting x 3 (In situ MOSS to LAD, Ao to SVG to diagonal, Ao to radial artery to OM)
2. Extensive adhesiolysis due to dense intrapericardial adhesions
Primary Diagnosis:
1. Coronary artery disease
Secondary Diagnoses:
1. Acute post op blood loss anemia, no transfusion required
2. Acute post op coagulopathy
3. Acute post op atelectasis
4. Acute post op hypovolemia
5. Chronic pericarditis
6. Unstable angina
7. Hyperlipidemia
8. Hypertension
HPI: Patient was admitted with unstable angina. Cardiology was consulted and ultimately left heart cath was pursued revealing multivessel coronary disease. It was felt that the patient would be an appropriate surgical candidate and therefore CABG
was pursued.
Hospital course: Patient underwent coronary artery bypass grafting x [address] Moses Krishnamurthy on 01/19/2025. Please refer to separately dictated operative report for complete details. Postoperatively the patient was transferred to the ICU in stable
condition on low-dose Cardene drip (for radial artery graft), as well as Levophed infusion. Patient was extubated per usual postop protocol at 1700. DDAVP was given postoperatively for coagulopathy. He otherwise progressed well along the usual
postop pathway and postop day 1.
Postoperative day #1: Left pleural chest tube was discontinued. Insulin drip was discontinued. Beta-marline was uptitrated due to tachycardia. Patient was transitioned from Cardene to p.o. Norvasc for his radial artery graft. Gentle diuresis
throughout the day.
Postoperative day #2: Chest tubes remain due to increased drainage. Patient had no other acute issues. He was weaned to room air. He began ambulating with the help of nursing and therapy.
Postoperative day #3: Chest tubes pacing wires removed. Beta-marline was again uptitrated. Patient continues to progress well.
Postoperative day #4: The patient was transitioned to Toprol-XL 200 mg daily. He remains on room air. He is ambulating independently. He was ultimately cleared for discharge to home with home health. Discharge instructions were reviewed
extensively with the patient his questions were answered to his satisfaction prior to his leaving today
Home medication changes: Toprol XL increased to 200 mg daily, 2.5 mg norvasc added for 6 months for radial artery spasm prophylaxis, he was given a short course of oxycodone for pain control, he will continue on ASA/Plavix for 1 year for DAPT
Discharge Plan
-
Patient Disposition: Home (Routine Discharge)
Discharge Diagnosis/Procedures: - multivessel CAD - Multi arterial coronary artery bypass grafting x 3 (In situ MOSS to LAD, Ao to RSVG to diagonal, Ao to radial artery to OM); extensive adhesiolysis due to dense intrapericardial adhesions by
Krishnamurthy on 01/19/25, pod #4
- Intraop ALICIA: LVEF 60% pre and postop with regional wall motion abnormalities.
- Multivessel coronary disease involving the left main
- History of pericarditis
- History of PCI
- History of peptic ulcer disease
- Unstable angina
- Hyperlipidemia
- Hypertension
- Acute postop blood loss anemia - stable, no transfusion
- Acute postop coagulopathy - s/p DDAVP
- Acute postop atelectasis
- Acute postop hypovolemia with subsequent hypervolemia
Diet: Low Fat and Low Cholesterol
Activity: No strenuous activity
Driving Restrictions: Not until seen by your Dr
Other Services: Cardiac Rehab
Specialty Instructions: Weigh Daily- Call MD for wt gain/loss 3 lbs overnight/5 lbs in 1 week
Activity Restrictions/Additional Instructions:
ACTIVITY:
-No strenuous activity: no heavy lifting, pushing, pulling anything over 15 pounds for one month
-continue to use stairs as tolerated
DRIVING RESTRICTIONS:
-No driving for one month or until approved by your surgeon
WOUND CARE:
-Shower daily. Use soap & water.
-No lotions, creams or powders on incision area.
DIET:
-continue a low fat/low cholesterol diet.
-IF you are diabetic, continue carb controlled diet.
CARDIAC REHAB:
-Please make appointment to start in 5-6 weeks with your local hospital program. (See Cardiac Rehabilitation Discharge Booklet).
SPECIALTY INSTRUCTIONS:
-Weigh yourself daily. Call your physician for any weight gain/loss of 3 lbs overnight or 5 lbs in one week.
-REPORT any clicking noise or uneven appearance of your sternum to your surgeon immediately.
-If you smoke, you are instructed to quit. The [place] smoking hotline phone number is [phone]
Referrals:
CT Transitional Care Nurse [Outside]
Referral Note:
The Cardiothoracic Transitional Care Nurse will call you to set up a visit in 1-2 days.
[facility]. Cardiac Rehab [Outside] - 03/03/25 1:00 pm
Referral Note: Cardiac Rehab Orientation appointment is on 03/03/25 at 1:00pm
The Cardiac Rehab gym is located on the first floor of the [facility].
Miguel Ansari MD [Family Provider, Internal Medicine]
Yasmin Darby CRNP [Specified Professional Personl, Cardiology] - 03/03/25 10:00 am
Lisa Croft CRNP [Specified Professional Personl, Cardiac Surgery] - 02/20/25 2:45 pm
Prescriptions:
New
amlodipine 2.5 mg Tablet
2.5 mg PO DAILY Qty: 30 2RF
acetaminophen 325 mg Tablet
650 mg PO Q4HPRN PRN (Reason: mild pain,headache,temp >101F ) Qty: 60 0RF
metoprolol succinate [Toprol XL] 200 mg tablet extended release 24 hr
200 mg PO DAILY Qty: 30 2RF
oxycodone 5 mg capsule
5 mg PO Q6H PRN (Reason: Pain) 7 Days Qty: 28 0RF
Continued
clopidogrel [Plavix] 75 mg Tablet
75 mg PO QPM
rosuvastatin [Crestor] 40 mg Tablet
40 mg PO QPM
aspirin 81 mg Tablet,Delayed Release (Dr/Ec)
81 mg PO DAILY
zinc sulfate 50 mg zinc (220 mg) Tablet
50 mg PO DAILY
coQ10 (ubiquinol) 100 mg Capsule
100 mg PO DAILY
magnesium oxide 400 mg magnesium Tablet
400 mg PO DAILY
turmeric 400 mg Capsule
400 mg PO DAILY
vitamin D3-vitamin K2 125-90 mcg Capsule
1 cap PO DAILY
berberine chloride 500 mg Capsule
500 mg PO DAILY
Discontinued
indapamide 2.5 mg Tablet
2.5 mg PO DAILY
amlodipine [Norvasc] 10 mg Tablet
10 mg PO DAILY
Metoprolol Tablets
100 mg PO QPM
Perindopril 6.78 mg tablet
6.78 mg PO DAILY
Discharge Orders:
Discharge Patient (As Directed); Ordered 01/23/25
Ordered By: Michael Marquez
Care Plan Goals
Care Plan Goals:
Problem: Readiness for enhanced knowledge related to diagnosis and treatment plan
Goal: Understand your diagnosis and treatment plan needs, including medications if applicable.
Instructions: Know your diagnosis, underlying causes and treatment plan options, including medications if applicable. Consult with your health care team to learn about your diagnosis and treatment plan, including medications if applicable.
Discharge Date and Time
Print Language: [place]
--- NOTE | 2025-01-23 09:56 | W.PN.CD ---
Today's Communication / Plan
-
continue aspirin, Plavix, high-dose rosuvastatin, amlodipine and metoprolol
discharge planning
Impression / Plan
-
Impression/Plan: 54-year-old male with CAD status post PCI, dyslipidemia, hypertension admitted with accelerated angina.
#CAD/Accelerating angina
-Found to have multivessel CAD on cardiac catheterization; CABG recommended.
-S/P CABG (MOSS to LAD, SVG to Diag, LRA to OM) with Dr. Krishnamurthy, 01/19/2025.
-Continue aspirin, Plavix, high-dose rosuvastatin, amlodipine and metoprolol
-trend tele
#Hypertension
-Chronic, stable.
-Resume home antihypertensives as BP permits. He is on amldoipine for LRA.
#Dyslipidemia
-Chronic, stable.
-Total cholesterol = 194, LDL = 144, HDL = 33, Triglycerides = 89.
-Continue high-dose rosuvastatin (goal LDL < 55)
DATA:
Cardiac Catheterization, 01/16/2025:
CONCLUSIONS
1. Right dominant circulation with nonocclusive, tandem 40% and 30-40% lesions in the proximal and mid RCA (IFR = 0.95), a 70% lesion in the distal left main, luminal irregularities with moderate disease in the proximal LAD followed by a focal, 90%
lesion in the mid LAD after the origin of the third diagonal and a 99% lesion in the ostium/proximal margin of the circumflex which demonstrates an acute, 130 degree angulation.
2. Normal filling pressures (LVEDP = 8 mmHg at 98.0 kg).
Transthoracic Echocardiogram, 01/17/2025:
CONCLUSIONS
LV ejection fraction is 60-65%. No regional wall motion abnormalities are seen.
Normal right ventricular size and function.
Mild to moderate tricuspid regurgitation. Estimated pulmonary artery pressure
of 25-30 mmHg.
No prior study available for comparison.
Physical Exam
Vital Signs/Labs
Vital Signs
Temp Pulse Resp BP Pulse Ox
98.7 F 80 16 126/74 99
01/23/25 08:00 01/23/25 09:20 01/23/25 08:00 01/23/25 07:47 01/23/25 09:24
01/22/25 01/23/25 01/24/25
06:59 06:59 06:59
Actual Weight 100.6 kg 99.7 kg
01/23/25 04:34
01/23/25 04:34
PT 17.1 Sec (11.4-14.6) H 01/19/25 15:32
INR 1.37 01/19/25 15:32
APTT 29.1 Sec (23.4-35.0) 01/19/25 15:32
Magnesium 2.2 mg/dl (1.6-2.3) 01/23/25 04:34
Triglycerides 89 mg/dl (10-149) 01/15/25 04:09
LDL Cholesterol, Calc 144 mg/dl 01/15/25 04:09
VLDL Cholesterol, Calc 17 mg/dl (0-30) 01/15/25 04:09
HDL Cholesterol 33 mg/dl 01/15/25 04:09
Physical Exam
Constitutional: No acute distress and Comfortable
EENT: Moist mucous membranes
Cardiovascular: Rhythm & rate is regular, Pedal edema is absent, JVD pressure is normal and Systolic murmur absent
Respiratory: Respiratory effort normal and Lungs clear to auscul.
Neuro/Psych: AO x 3
Data Reviewed
-
Date of Service: January 23, 2025
EKG: Other (Tele: SR 80s, brief SVT)
Labs: Labs Reviewed by me
--- NOTE | 2025-01-23 10:44 | CM ---
Reviewed chart. Met with Mr. Woods to review discharge plans. He states he is feeling well and maybe able to go home soon. He states prior to admission he resides with his spouse in a two story home without any steps to enter. He states he has
to up a full flight of steps to get to bedroom/full bathroom. Prior to admission he was independent with ambulation and adls. He ambulated 400 feet in the hallway today. He states his spouse will be staying home the first week to assist in his
care if needed. We reviewed a home visit by the Transitional Care Nurse. He is agreeable to a home visit. Medical work-up in progress. The discharge plan is to return home with his spouse and a home visit by the Transitional Care Nurse when
medically stable.
--- NOTE | 2025-01-23 12:00 | PTCARENOTE ---
Assisted into shower. Tolerated w/o issue, Assisted to dress in street clothes post. Monitor reapplied. VSS. Lunch ordered Assessment otherwise unchanged from prior. Waiting for and daughter for discharge
[2025-01-23 12:01] VITALS: BP 113/67
[2025-01-23] MEDS: NSS IV (15:30)
[2025-01-23 15:57] VITALS: BP 137/77
[2025-01-23] MEDS: CRESTOR 40 MG PO (15:59)
--- NOTE | 2025-01-23 16:11 | PTCARENOTE ---
Ambulating at [facility]. VSS. Denies complaint. Waiting for family for discharge.
--- NOTE | 2025-01-23 18:53 | PTCARENOTE ---
Discharge instructions reviewed with patient and daughter. Questions answered. Wheeled to car by RN.
== END 2025-01-23 19:00 | disposition home or self-care (01) | DRG 234 ==
LOC: CVICU 12:23
PROVIDERS: Anesthesiology; Hospitalist; Internal Medicine Cardiovascular Disease; Nurse Practitioner; Nurse Practitioner Family; Physician Assistant Medical; ADMITTING PHYSICIAN Internal Medicine; ATTENDING PHYSICIAN Thoracic Surgery (Cardiothoracic Vascular Surgery); CONSULT PHYSICIAN Internal Medicine Cardiovascular Disease; CONSULT PHYSICIAN Internal Medicine Critical Care Medicine; EMERGENCY PHYSICIAN Emergency Medicine; FAMILY PHYSICIAN Internal Medicine; OTHER PHYSICIAN Thoracic Surgery (Cardiothoracic Vascular Surgery)
PROC: 4A033BC Measurement of Arterial Pressure, Coronary, Percutaneous Approach (ICD-10-PCS; 2025-01-16)
PROC: 4A023N7 Measurement of Cardiac Sampling and Pressure, Left Heart, Percutaneous Approach (ICD-10-PCS; 2025-01-16)
PROC: B2111ZZ Fluoroscopy of Multiple Coronary Arteries using Low Osmolar Contrast (ICD-10-PCS; 2025-01-16)
PROC: 021009W Bypass Coronary Artery, One Artery from Aorta with Autologous Venous Tissue, Open Approach (ICD-10-PCS; 2025-01-19)
PROC: 03BC4ZZ Excision of Left Radial Artery, Percutaneous Endoscopic Approach (ICD-10-PCS; 2025-01-19)
PROC: 06BP0ZZ Excision of Right Saphenous Vein, Open Approach (ICD-10-PCS; 2025-01-19)
PROC: B24BZZ4 Ultrasonography of Heart with Aorta, Transesophageal (ICD-10-PCS; 2025-01-19)
PROC: 02100Z9 Bypass Coronary Artery, One Artery from Left Internal Mammary, Open Approach (ICD-10-PCS; 2025-01-19)
PROC: 02100AW Bypass Coronary Artery, One Artery from Aorta with Autologous Arterial Tissue, Open Approach (ICD-10-PCS; 2025-01-19)
PROC: 02NN0ZZ Release Pericardium, Open Approach (ICD-10-PCS; 2025-01-19)
PROC: 5A1221Z Performance of Cardiac Output, Continuous (ICD-10-PCS; 2025-01-19)
DX: I25.110 Atherosclerotic heart disease of native coronary artery with unstable angina pectoris (principal); I31.0 Chronic adhesive pericarditis; D62 Acute posthemorrhagic anemia; D68.8 Other specified coagulation defects; J98.11 Atelectasis; E87.70 Fluid overload, unspecified; E86.1 Hypovolemia; R00.0 Tachycardia, unspecified; E78.00 Pure hypercholesterolemia, unspecified; I10 Essential (primary) hypertension; R73.9 Hyperglycemia, unspecified; E83.51 Hypocalcemia; M17.0 Bilateral primary osteoarthritis of knee; Z95.5 Presence of coronary angioplasty implant and graft; Z79.82 Long term (current) use of aspirin; Z79.02 Long term (current) use of antithrombotics/antiplatelets; Z87.11 Personal history of peptic ulcer disease
CPT/HCPCS: 71045; 71046; 71250; 80048; 80053; 80061; 81003; 81015; 82330; 82565; 82805; 82810; 82947; 82962; 83036; 83735; 84132; 84302; 84484; 84520; 85014; 85018; 85025; 85027; 85049; 85347; 85379; 85610; 85730; 86850; 86900; 86901; 86920; 93005; 93306; 93312; 93320; 93325; 93458; 93799; 93880; 93923; 93931; 94002; 99152; 99153; 99285; C1769; C1894; J2597; J2916; Q9967